=== PATIENT | male | born 1960 | race African-American/Black ===

== ENCOUNTER 2016-06-20 08:49 | Inpatient (IN) | payer OTHER, MEDICAID ==
[~2016-06-20] VITALS: Ht 175.3 cm; Wt 90.7 kg
[~2016-06-20 08:49] MED LIST: AMLO5TAB2 PO; CLON0.1T PO; NOR5T PO
[2016-06-20] MEDS ORDERED: ALBUTEROL SULF 2.5 MG/0.5ML(0.5%) NEB SOLN NEB ONE ×2 (09:00→09:45)
[2016-06-20] MEDS ORDERED: IPRATROPIUM BROM 0.5 MG/2.5ML INH SOL NEB ONE ×2 (09:00→09:45)
[2016-06-20] MEDS ORDERED: methylPREDNISolone SOD SUCC 125 MG/2 ML VL IM ONE (09:30)
[2016-06-20] MEDS ORDERED: FUROSEMIDE 100 MG/10ML VIAL IV ONE (10:30)
[2016-06-20 11:18] LABS: Basophils # (auto) 0 uL; Basophils % (auto) 0.8 % (0.0-2.0); Eosinophils # (auto) 0 uL; Eosinophils % (auto) 0.8 % (0.0-7.0); Hematocrit 37.7 % (41.0-53.0); Hemoglobin 12.5 g/dL (13.5-17.5); Lymphocytes # (auto) 2.4 uL; Lymphocytes % (auto) 50.2 % (10.0-50.0); Mean Corpuscular Hemoglobin 29.6 pg (28.0-32.0); Mean Corpuscular Hgb Conc. 33.2 g/dL (32.0-36.0); Mean Corpuscular Volume 89.2 fL (80.0-100.0); Mean Platelet Volume 9.1 fL (7.4-10.4); Monocytes # (auto) 0.3 uL; Monocytes % (auto) 7.4 % (0.0-12.0); Neutrophils # (auto) 1.9 uL; Neutrophils % (auto) 40.8 % (37.0-80.0); Platelet Count (auto) 327 10^3/uL (140-450); Red Cell Distribution Width 13.4 % (11.6-16.0); White Blood Cell 4.7 10^3/uL (4.4-10.8)
[2016-06-20] MEDS ORDERED: cefTRIAXone 1GM/50ML D5W 50 ML IV ONE ×2 (11:30→23:00)
[2016-06-20 11:54] LABS: Urine RBC None Seen /hpf (0 - 3)
[2016-06-20 11:58] LABS: Albumin 3.2 g/dL (3.4-5.0); BUN/Creatinine Ratio 12.5; Bilirubin, Total 0.4 mg/dL (0.2-1.0); Calcium 8.1 mg/dL (8.5-10.1); Magnesium 2.3 mg/dL (1.6-2.6); Potassium 4.1 mmol/L (3.5-5.1); Total Protein 6.9 g/dL (6.4-8.2)
[2016-06-20] MEDS ORDERED: cloNIDine HCL 0.1 MG TAB PO ONE (12:00)
[2016-06-20 12:49] LABS: Urine Bilirubin Negative (Negative); Urine Blood Negative /uL (Negative); Urine Color Yellow (Yellow); Urine Glucose Normal (Normal); Urine Ketone Negative (Negative); Urine Mucus FEW (None Seen); Urine Nitrite Negative (Negative); Urine Urobilinogen Normal (Negative); Urine pH 5.5 (5.0-8.0)
[2016-06-20] MEDS ORDERED: POTASSIUM CHL 10 Meq TABLET PO ONE (13:45)
[2016-06-20] MEDS ORDERED: FUROSEMIDE 20 MG/2 ML VIAL IV ONE (13:45)
[2016-06-20] MEDS ORDERED: VANCOMYCIN PER PHARMACY 0 MG IV SCH (13:45)
[2016-06-20] MEDS: SODIUM CHLOR 0.9% PF (SALINE LOCK) 10ML VIAL IV SCH ×2 (13:59→22:25)
[2016-06-20] MEDS ORDERED: MORPHINE SULF INJ 2 MG/ML SYRINGE 1ML IV PRN (14:00)
[2016-06-20] MEDS ORDERED: DOCUSATE SOD 100 MG CAP PO PRN (14:00)
[2016-06-20] MEDS ORDERED: NITROGLYCERIN 0.4 MG SL TAB SL PRN (14:00)
[2016-06-20] MEDS ORDERED: ACETAMINOPHEN 325 MG TAB PO PRN (14:00)
[2016-06-20] MEDS ORDERED: ONDANSETRON HCL 4 MG/2 ML VIAL IV PRN (14:00)
[2016-06-20] MEDS ORDERED: ASPirin-EC 81 mg tab PO ONE (14:00)
[2016-06-20] MEDS ORDERED: TEMAZEPAM 15 MG CAP PO PRN (14:00)
[2016-06-20] MEDS ORDERED: HYDROcodone-ACET 5/325MG TAB PO PRN (14:00)
[2016-06-20] MEDS ORDERED: amLODIPine BESYLATE 5 MG TAB PO ONE (14:00)
[2016-06-20] MEDS ORDERED: MULTIPLE VITAMIN TAB PO ONE (14:00)
[2016-06-20] MEDS ORDERED: ENOXAPARIN SOD 80 MG/0.8ML SYRINGE SC ONE (14:15)
[2016-06-20 14:25] LABS: INR 1.07 (0.9-1.15)
[2016-06-20] MEDS: VANCOMYCIN 1GM/250ML D5W 250 ML IV SCH (14:43)
[2016-06-20 14:58] LABS: Temperature: 22.8 C (20.0-25.0)
[2016-06-20] MEDS: ALBUTEROL SULF 2.5 MG/0.5ML(0.5%) NEB SOLN NEB SCH (18:20)
[2016-06-20] MEDS: IPRATROPIUM BROM 0.5 MG/2.5ML INH SOL NEB SCH (18:20)
[2016-06-20] MEDS: BOOST PLUS 8 ounce PO SCH (19:23)
[2016-06-20] MEDS ORDERED: ENOXAPARIN SOD 40 MG/0.4 ML SYRINGE SC SCH (22:00)
[2016-06-20] MEDS: CARVEDILOL 3.125 MG TAB PO SCH (22:26)
[2016-06-20] MEDS: ATORVASTATIN 20 MG TAB PO SCH (22:26)
[2016-06-20] MEDS: FAMOTIDINE 20 MG TAB PO SCH (22:26)
[2016-06-21] MEDS: VANCOMYCIN 1GM/250ML D5W 250 ML IV SCH ×2 (03:17→15:11)
[2016-06-21 03:53] VITALS: BP 137/95
[2016-06-21 04:20] LABS: Basophils # (auto) 0 uL; Basophils % (auto) 0.3 % (0.0-2.0); Eosinophils # (auto) 0 uL; Hematocrit 36.9 % (41.0-53.0); Hemoglobin 12.3 g/dL (13.5-17.5); Lymphocytes # (auto) 1.5 uL; Lymphocytes % (auto) 18.6 % (10.0-50.0); Mean Corpuscular Hemoglobin 29.7 pg (28.0-32.0); Mean Corpuscular Hgb Conc. 33.2 g/dL (32.0-36.0); Mean Corpuscular Volume 89.3 fL (80.0-100.0); Mean Platelet Volume 9.1 fL (7.4-10.4); Monocytes # (auto) 0.6 uL; Monocytes % (auto) 7.1 % (0.0-12.0); Neutrophils # (auto) 5.8 uL; Platelet Count (auto) 331 10^3/uL (140-450); Red Cell Distribution Width 14.1 % (11.6-16.0); White Blood Cell 7.8 10^3/uL (4.4-10.8)
[2016-06-21 04:38] LABS: Albumin 2.9 g/dL (3.4-5.0); BUN/Creatinine Ratio 17.5; Bilirubin, Total 0.4 mg/dL (0.2-1.0); Calcium 8.2 mg/dL (8.5-10.1); Potassium 4.4 mmol/L (3.5-5.1); Total Protein 6.1 g/dL (6.4-8.2)
[2016-06-21] MEDS: ENOXAPARIN SOD 80 MG/0.8ML SYRINGE SC SCH ×2 (05:38→17:17)
[2016-06-21] MEDS: ALBUTEROL SULF 2.5 MG/0.5ML(0.5%) NEB SOLN NEB SCH ×5 (06:00→23:57)
[2016-06-21] MEDS: IPRATROPIUM BROM 0.5 MG/2.5ML INH SOL NEB SCH ×5 (06:00→23:57)
[2016-06-21] MEDS: SODIUM CHLOR 0.9% PF (SALINE LOCK) 10ML VIAL IV SCH ×3 (06:00→22:08)
[2016-06-21] MEDS: BOOST PLUS 8 ounce PO SCH ×3 (08:36→18:05)
[2016-06-21] MEDS: cefTRIAXone 1GM/50ML D5W 50 ML IV SCH (09:30)
[2016-06-21] MEDS: FUROSEMIDE 40 MG/4 ML VIAL IV SCH (09:44)
[2016-06-21] MEDS: amLODIPine BESYLATE 5 MG TAB PO SCH (09:45)
[2016-06-21] MEDS: CARVEDILOL 3.125 MG TAB PO SCH ×2 (09:45→22:21)
[2016-06-21] MEDS: ASPirin-EC 81 mg tab PO SCH (09:45)
[2016-06-21] MEDS: POTASSIUM CHL 10 Meq TABLET PO SCH (09:45)
[2016-06-21] MEDS: FAMOTIDINE 20 MG TAB PO SCH ×2 (09:45→22:22)
[2016-06-21] MEDS: MULTIPLE VITAMIN TAB PO SCH (09:45)
[2016-06-21] MEDS ORDERED: ENALAPRIL MALEATE 2.5 MG TAB PO SCH (10:00)
[2016-06-21] MEDS: PROMETHAZINE W/CODEINE 5 ML ORAL SYRUP PO PRN ×2 (15:16→18:51)
[2016-06-21] MEDS: ATORVASTATIN 20 MG TAB PO SCH (22:22)
[2016-06-22] MEDS: PROMETHAZINE W/CODEINE 5 ML ORAL SYRUP PO PRN ×2 (01:39→06:45)
[2016-06-22 02:33] LABS: Basophils # (auto) 0.1 uL; Eosinophils # (auto) 0.1 uL; Hematocrit 39.4 % (41.0-53.0); Hemoglobin 12.9 g/dL (13.5-17.5); Lymphocytes # (auto) 3.2 uL; Lymphocytes % (auto) 49.9 % (10.0-50.0); Mean Corpuscular Hemoglobin 29.3 pg (28.0-32.0); Mean Corpuscular Hgb Conc. 32.8 g/dL (32.0-36.0); Mean Corpuscular Volume 89.5 fL (80.0-100.0); Mean Platelet Volume 9.2 fL (7.4-10.4); Monocytes # (auto) 0.3 uL; Monocytes % (auto) 4.2 % (0.0-12.0); Neutrophils # (auto) 2.8 uL; Neutrophils % (auto) 43.9 % (37.0-80.0); Platelet Count (auto) 342 10^3/uL (140-450); Red Cell Distribution Width 14.1 % (11.6-16.0); White Blood Cell 6.4 10^3/uL (4.4-10.8)
[2016-06-22 03:05] LABS: BUN/Creatinine Ratio 20.7; Calcium 8.2 mg/dL (8.5-10.1); Potassium 4.7 mmol/L (3.5-5.1)
[2016-06-22] MEDS: VANCOMYCIN 1GM/250ML D5W 250 ML IV SCH ×2 (03:16→15:09)
[2016-06-22] MEDS ORDERED: ALBUTEROL SULF 2.5 MG/0.5ML(0.5%) NEB SOLN NEB PRN (04:45)
[2016-06-22] MEDS: SODIUM CHLOR 0.9% PF (SALINE LOCK) 10ML VIAL IV SCH ×3 (05:02→22:00)
[2016-06-22] MEDS: ENOXAPARIN SOD 80 MG/0.8ML SYRINGE SC SCH ×2 (05:06→17:09)
[2016-06-22] MEDS: IPRATROPIUM BROM 0.5 MG/2.5ML INH SOL NEB SCH ×4 (06:00→23:40)
[2016-06-22] MEDS: ALBUTEROL SULF 2.5 MG/0.5ML(0.5%) NEB SOLN NEB SCH ×4 (06:00→23:41)
[2016-06-22] MEDS: BOOST PLUS 8 ounce PO SCH ×6 (08:19→22:00)
[2016-06-22] MEDS: cefTRIAXone 1GM/50ML D5W 50 ML IV SCH (09:30)
[2016-06-22] MEDS: POTASSIUM CHL 10 Meq TABLET PO SCH (10:21)
[2016-06-22] MEDS: FUROSEMIDE 40 MG/4 ML VIAL IV SCH (10:21)
[2016-06-22] MEDS: CARVEDILOL 3.125 MG TAB PO SCH ×2 (10:21→22:00)
[2016-06-22] MEDS: ASPirin-EC 81 mg tab PO SCH (10:21)
[2016-06-22] MEDS: FAMOTIDINE 20 MG TAB PO SCH ×2 (10:21→21:22)
[2016-06-22] MEDS: MULTIPLE VITAMIN TAB PO SCH (10:21)
[2016-06-22] MEDS: amLODIPine BESYLATE 5 MG TAB PO SCH (10:22)
[2016-06-22] MEDS: NITROGLYCERIN 50MG/250ML 250 ML IV SCH (14:19)
[2016-06-22] MEDS: hydrALAZINE HCL 25 MG TAB PO SCH ×2 (14:19→21:26)
[2016-06-22 20:30] VITALS: BP 144/112
[2016-06-22] MEDS: ATORVASTATIN 20 MG TAB PO SCH (21:21)
[2016-06-22] MEDS: MORPHINE SULF INJ 2 MG/ML SYRINGE 1ML IV PRN (21:23)
[2016-06-22 21:39] VITALS: BP 125/96
[2016-06-23] VITALS (46 sets, daily range): BP systolic 105–163; BP diastolic 24–117
[2016-06-23] MEDS: VANCOMYCIN 1GM/250ML D5W 250 ML IV SCH (03:34)
[2016-06-23] MEDS: MORPHINE SULF INJ 2 MG/ML SYRINGE 1ML IV PRN (03:38)
[2016-06-23] MEDS: BOOST PLUS 8 ounce PO SCH ×7 (06:00→22:00)
[2016-06-23] MEDS: hydrALAZINE HCL 25 MG TAB PO SCH ×3 (06:08→21:49)
[2016-06-23] MEDS: ENOXAPARIN SOD 80 MG/0.8ML SYRINGE SC SCH ×2 (06:08→17:23)
[2016-06-23] MEDS: SODIUM CHLOR 0.9% PF (SALINE LOCK) 10ML VIAL IV SCH ×3 (06:11→21:49)
[2016-06-23 06:30] LABS: Basophils # (auto) 0 uL; Basophils % (auto) 0.3 % (0.0-2.0); Eosinophils # (auto) 0.1 uL; Eosinophils % (auto) 2.4 % (0.0-7.0); Hematocrit 38.9 % (41.0-53.0); Hemoglobin 12.7 g/dL (13.5-17.5); Lymphocytes # (auto) 1.9 uL; Lymphocytes % (auto) 41.2 % (10.0-50.0); Mean Corpuscular Hemoglobin 29.4 pg (28.0-32.0); Mean Corpuscular Hgb Conc. 32.5 g/dL (32.0-36.0); Mean Corpuscular Volume 90.4 fL (80.0-100.0); Mean Platelet Volume 9.7 fL (7.4-10.4); Monocytes # (auto) 0.4 uL; Monocytes % (auto) 9.8 % (0.0-12.0); Neutrophils # (auto) 2.1 uL; Neutrophils % (auto) 46.3 % (37.0-80.0); Platelet Count (auto) 345 10^3/uL (140-450); Red Cell Distribution Width 14.2 % (11.6-16.0); SUSPECT VIEW TRANSMISSION; White Blood Cell 4.5 10^3/uL (4.4-10.8)
[2016-06-23] MEDS: IPRATROPIUM BROM 0.5 MG/2.5ML INH SOL NEB SCH ×3 (06:30→18:48)
[2016-06-23] MEDS: ALBUTEROL SULF 2.5 MG/0.5ML(0.5%) NEB SOLN NEB SCH ×3 (06:30→18:47)
[2016-06-23 07:12] LABS: Albumin 2.8 g/dL (3.4-5.0); BUN/Creatinine Ratio 21.3; Bilirubin, Total 0.6 mg/dL (0.2-1.0); Calcium 8.3 mg/dL (8.5-10.1); Potassium 4.4 mmol/L (3.5-5.1); Total Protein 6.5 g/dL (6.4-8.2)
[2016-06-23] MEDS: cefTRIAXone 1GM/50ML D5W 50 ML IV SCH (09:34)
[2016-06-23] MEDS: FUROSEMIDE 40 MG/4 ML VIAL IV SCH (09:35)
[2016-06-23] MEDS: CARVEDILOL 3.125 MG TAB PO SCH ×2 (09:36→21:50)
[2016-06-23] MEDS: FAMOTIDINE 20 MG TAB PO SCH ×2 (09:36→21:49)
[2016-06-23] MEDS: POTASSIUM CHL 10 Meq TABLET PO SCH (09:36)
[2016-06-23] MEDS: amLODIPine BESYLATE 5 MG TAB PO SCH (09:36)
[2016-06-23] MEDS: MULTIPLE VITAMIN TAB PO SCH (09:36)
[2016-06-23] MEDS: ASPirin-EC 81 mg tab PO SCH (09:36)
[2016-06-23] MEDS: NITROGLYCERIN 50MG/250ML 250 ML IV SCH (13:00)
[2016-06-23] MEDS: ATORVASTATIN 20 MG TAB PO SCH (21:53)
[2016-06-23] MEDS: PROMETHAZINE W/CODEINE 5 ML ORAL SYRUP PO PRN (21:56)
[2016-06-24] MEDS: IPRATROPIUM BROM 0.5 MG/2.5ML INH SOL NEB SCH ×3 (00:40→12:57)
[2016-06-24] MEDS: ALBUTEROL SULF 2.5 MG/0.5ML(0.5%) NEB SOLN NEB SCH ×3 (00:40→12:57)
[2016-06-24 04:43] VITALS: BP 142/100
[2016-06-24] MEDS: ENOXAPARIN SOD 80 MG/0.8ML SYRINGE SC SCH (05:21)
[2016-06-24] MEDS: SODIUM CHLOR 0.9% PF (SALINE LOCK) 10ML VIAL IV SCH ×2 (05:22→14:24)
[2016-06-24] MEDS: hydrALAZINE HCL 25 MG TAB PO SCH ×2 (05:30→14:00)
[2016-06-24 05:49] LABS: Basophils # (auto) 0 uL; Basophils % (auto) 0.6 % (0.0-2.0); Eosinophils # (auto) 0.1 uL; Eosinophils % (auto) 2.2 % (0.0-7.0); Hematocrit 43.2 % (41.0-53.0); Hemoglobin 14.6 g/dL (13.5-17.5); Lymphocytes # (auto) 2.6 uL; Lymphocytes % (auto) 44.9 % (10.0-50.0); Mean Corpuscular Hemoglobin 29.8 pg (28.0-32.0); Mean Corpuscular Hgb Conc. 33.8 g/dL (32.0-36.0); Mean Corpuscular Volume 88.4 fL (80.0-100.0); Mean Platelet Volume 9.4 fL (7.4-10.4); Monocytes # (auto) 0.6 uL; Monocytes % (auto) 10.1 % (0.0-12.0); Neutrophils # (auto) 2.5 uL; Neutrophils % (auto) 42.2 % (37.0-80.0); Platelet Count (auto) 383 10^3/uL (140-450); White Blood Cell 5.9 10^3/uL (4.4-10.8)
[2016-06-24] MEDS: BOOST PLUS 8 ounce PO SCH ×2 (06:00→12:00)
[2016-06-24 06:30] LABS: BUN/Creatinine Ratio 19.5; Calcium 8.7 mg/dL (8.5-10.1); Potassium 4.4 mmol/L (3.5-5.1)
[2016-06-24 09:00] VITALS: BP 127/94
[2016-06-24] MEDS: cefTRIAXone 1GM/50ML D5W 50 ML IV SCH (09:05)
[2016-06-24] MEDS: MULTIPLE VITAMIN TAB PO SCH (09:53)
[2016-06-24] MEDS: FUROSEMIDE 40 MG/4 ML VIAL IV SCH (09:53)
[2016-06-24] MEDS: CARVEDILOL 3.125 MG TAB PO SCH (09:54)
[2016-06-24] MEDS: ASPirin-EC 81 mg tab PO SCH (09:54)
[2016-06-24] MEDS: POTASSIUM CHL 10 Meq TABLET PO SCH (09:55)
[2016-06-24] MEDS: FAMOTIDINE 20 MG TAB PO SCH (09:56)
[2016-06-24] MEDS ORDERED: amLODIPine BESYLATE 5 MG TAB PO SCH (10:00)
[2016-06-24] MEDS ORDERED: NIFEdipine ER 30 MG TAB PO ONE (10:45)
[2016-06-24 12:25] VITALS: BP 128/92
[2016-06-24 13:00] VITALS: BP 128/92
== END 2016-06-24 15:30 | disposition home or self-care (01) | DRG 291 ==
LOC: ER 08:52 → TELE 08:53 → DOU IN ICU 06-22 20:28 → TELE-EAST 06-23 18:18
PROVIDERS: ADMIT Internal Medicine; ATTEND Family Medicine
DX: I50.43 Acute on chronic combined systolic (congestive) and diastolic (congestive) heart failure (principal); J18.9 Pneumonia, unspecified organism; E43 Unspecified severe protein-calorie malnutrition; J96.90 Respiratory failure, unspecified, unspecified whether with hypoxia or hypercapnia; I13.0 Hypertensive heart and chronic kidney disease with heart failure and stage 1 through stage 4 chronic kidney disease, or unspecified chronic kidney disease; J44.0 Chronic obstructive pulmonary disease with (acute) lower respiratory infection; J45.901 Unspecified asthma with (acute) exacerbation; I42.9 Cardiomyopathy, unspecified; Z88.8 Allergy status to other drugs, medicaments and biological substances; N18.3 Chronic kidney disease, stage 3 (moderate); M10.9 Gout, unspecified; F17.210 Nicotine dependence, cigarettes, uncomplicated; D63.8 Anemia in other chronic diseases classified elsewhere; E83.51 Hypocalcemia; Z83.3 Family history of diabetes mellitus; Z82.49 Family history of ischemic heart disease and other diseases of the circulatory system; Z80.9 Family history of malignant neoplasm, unspecified; Z68.29 Body mass index [BMI] 29.0-29.9, adult
CPT/HCPCS: 36415; 71010; 71020; 78582; 80048; 80053; 80202; 81001; 83605; 83735; 83880; 84484; 85025; 85379; 85610; 85730; 87040; 87081; 87400; 93005; 93306; 93970; 94640; 96365; 96372; 96375; J0696

== ENCOUNTER → 2017-01-05 | Outpatient (CLI) | payer OTHER, MEDICAID ==
[~2017-01-05] MED LIST changes: +HYDR-4663 PO; -NOR5T PO
[2017-01-05 11:01] LABS: Basophils # (auto) 0.1 uL; Basophils % (auto) 1.1 % (0.0-2.0); Eosinophils # (auto) 0.1 uL; Eosinophils % (auto) 0.9 % (0.0-7.0); Hematocrit 43.3 % (41.0-53.0); Hemoglobin 14.5 g/dL (13.5-17.5); Lymphocytes # (auto) 2.1 uL; Lymphocytes % (auto) 35.9 % (10.0-50.0); Mean Corpuscular Hemoglobin 30.9 pg (28.0-32.0); Mean Corpuscular Hgb Conc. 33.5 g/dL (32.0-36.0); Mean Corpuscular Volume 92.2 fL (80.0-100.0); Mean Platelet Volume 8.1 fL (6.9-10.8); Monocytes # (auto) 0.4 uL; Monocytes % (auto) 6.3 % (0.0-12.0); Neutrophils # (auto) 3.2 uL; Neutrophils % (auto) 55.8 % (37.0-80.0); Nucleated Red Blood Cells % 0.2 %; Platelet Count (auto) 270 10^3/uL (140-450); Red Cell Distribution Width 13.6 % (11.8-14.3); White Blood Cell 5.8 10^3/uL (4.4-10.8)
[2017-01-05 11:25] LABS: Calcium 8.6 mg/dL (8.5-10.1); Potassium 3.7 mmol/L (3.5-5.1)
== END | disposition home or self-care (01) ==
LOC: LAB 10:38
PROVIDERS: ATTEND Internal Medicine
DX: I10 Essential (primary) hypertension (principal); E78.2 Mixed hyperlipidemia; E55.9 Vitamin D deficiency, unspecified; J44.9 Chronic obstructive pulmonary disease, unspecified
CPT/HCPCS: 36415; 80048; 80061; 82306; 85025

== ENCOUNTER 2017-07-07 17:35 | Emergency (ER) | payer OTHER, MEDICAID ==
[~2017-07-07] VITALS: Ht 177.8 cm; Wt 93.0 kg
[~2017-07-07 17:35] MED LIST changes: -HYDR-4663 PO; +HYDR-4683 PO
[2017-07-07] MEDS ORDERED: ASPirin 81 mg TAB PO ONE (18:00)
[2017-07-07] MEDS ORDERED: cloNIDine HCL 0.1 MG TAB PO ONE (18:00)
[2017-07-07 18:42] LABS: Basophils # (auto) 0 uL; Eosinophils # (auto) 0.1 uL; Lymphocytes # (auto) 2.4 uL; Mean Corpuscular Volume 93.5 fL (80.0-100.0)
[2017-07-07 18:53] LABS: Basophils % (auto) 0.6 % (0.0-2.0); Eosinophils % (auto) 1.5 % (0.0-7.0); Hematocrit 48.2 % (41.0-53.0); Hemoglobin 16.1 g/dL (13.5-17.5); Lymphocytes % (auto) 42.8 % (10.0-50.0); Mean Corpuscular Hemoglobin 31.2 pg (28.0-32.0); Mean Corpuscular Hgb Conc. 33.3 g/dL (32.0-36.0); Monocytes # (auto) 0.4 uL; Monocytes % (auto) 7.8 % (0.0-12.0); Neutrophils # (auto) 2.6 uL; Neutrophils % (auto) 47.3 % (37.0-80.0); Nucleated Red Blood Cells % 0.2 %; Platelet Count (auto) 239 10^3/uL (140-450); Red Blood Cells 5.16 10^6/uL (4.5-5.90); Red Cell Distribution Width 14.5 % (11.8-14.3); White Blood Cell 5.5 10^3/uL (4.4-10.8)
[2017-07-07 18:59] VITALS: BP 133/106
[2017-07-07 18:59] LABS: Alanine Aminotransferase 53 U/L (16-61); Albumin 3.7 g/dL (3.4-5.0); Anion Gap 7 (5-15); Aspartate Aminotransferase 60 U/L (15-37); BUN/Creatinine Ratio 14.2; Blood Urea Nitrogen 22 mg/dL (7-18); Calcium 8.5 mg/dL (8.5-10.1); Carbon Dioxide 26 mmol/L (21-32); Chloride 108 mmol/L (98-107); GFR African American 60 mL/min; GFR Non-African American 50 mL/min; Glucose 91 mg/dL (74-106); Potassium 3.9 mmol/L (3.5-5.1); Sodium 141 mmol/L (136-145)
[2017-07-07 19:04] LABS: Alkaline Phosphatase 109 U/L (45-117); Bilirubin, Total 0.4 mg/dL (0.2-1.0); Total Protein 8.2 g/dL (6.4-8.2)
== END 2017-07-07 20:33 | disposition home or self-care (01) ==
LOC: ER 17:35
DX: I16.0 Hypertensive urgency (principal); R07.89 Other chest pain; I11.0 Hypertensive heart disease with heart failure; I50.9 Heart failure, unspecified; M19.90 Unspecified osteoarthritis, unspecified site; M10.9 Gout, unspecified; F17.210 Nicotine dependence, cigarettes, uncomplicated; F15.10 Other stimulant abuse, uncomplicated; Z88.8 Allergy status to other drugs, medicaments and biological substances
CPT/HCPCS: 36415; 71046; 80053; 83735; 84484; 85025; 93005; 94761

== ENCOUNTER 2017-09-22 22:46 | Emergency (ER) | payer OTHER, MEDICAID ==
[2017-09-22 22:53] VITALS: BP 190/131
[2017-09-22] MEDS ORDERED: cloNIDine HCL 0.1 MG TAB ONE (23:09)
[2017-09-22] MEDS ORDERED: cloNIDine HCL 0.1 MG TAB PO ONE (23:15)
[2017-09-22 23:35] LABS: Basophils # (auto) 0 uL; Basophils % (auto) 0.8 % (0.0-2.0); Eosinophils # (auto) 0.2 uL; Eosinophils % (auto) 3.3 % (0.0-7.0); Hematocrit 41.3 % (41.0-53.0); Hemoglobin 13.7 g/dL (13.5-17.5); Lymphocytes # (auto) 2.4 uL; Lymphocytes % (auto) 45.2 % (10.0-50.0); Mean Corpuscular Hemoglobin 30.9 pg (28.0-32.0); Mean Corpuscular Hgb Conc. 33.3 g/dL (32.0-36.0); Mean Corpuscular Volume 92.8 fL (80.0-100.0); Monocytes # (auto) 0.5 uL; Monocytes % (auto) 8.6 % (0.0-12.0); Neutrophils # (auto) 2.3 uL; Neutrophils % (auto) 42.1 % (37.0-80.0); Nucleated Red Blood Cells % 0.1 %; Platelet Count (auto) 268 10^3/uL (140-450); Red Blood Cells 4.45 10^6/uL (4.5-5.90); White Blood Cell 5.4 10^3/uL (4.4-10.8)
[2017-09-22 23:53] LABS: Alanine Aminotransferase 44 U/L (16-61); Albumin 3.6 g/dL (3.4-5.0); Anion Gap 11 (5-15); Aspartate Aminotransferase 56 U/L (15-37); BUN/Creatinine Ratio 11.7; Blood Urea Nitrogen 16 mg/dL (7-18); Calcium 8.5 mg/dL (8.5-10.1); Carbon Dioxide 19 mmol/L (21-32); Chloride 110 mmol/L (98-107); GFR African American 69 mL/min; GFR Non-African American 57 mL/min; Glucose 71 mg/dL (74-106); Magnesium 2.1 mg/dL (1.6-2.6); Potassium 4.1 mmol/L (3.5-5.1); Sodium 140 mmol/L (136-145)
[2017-09-22 23:58] LABS: Alkaline Phosphatase 124 U/L (45-117); Bilirubin, Total 0.6 mg/dL (0.2-1.0); Total Protein 7.7 g/dL (6.4-8.2)
== END 2017-09-23 02:10 | disposition left against medical advice (07) ==
LOC: EDBD 22:46 → ER 22:48
DX: R07.9 Chest pain, unspecified (principal); Z53.21 Procedure and treatment not carried out due to patient leaving prior to being seen by health care provider
CPT/HCPCS: 36415; 80053; 83735; 83880; 84443; 84484; 85025; 93005

== ENCOUNTER 2017-10-10 20:54 | Inpatient (IN) | payer OTHER, MEDICAID ==
[~2017-10-10] VITALS: Ht 175.3 cm; Wt 86.0 kg
[2017-10-10] VITALS (10 sets, daily range): BP systolic 120–148; BP diastolic 63–80
[2017-10-10] MEDS ORDERED: NITROGLYCERIN 0.4 MG SL TAB SL PRN (21:15)
[2017-10-10] MEDS ORDERED: MORPHINE SULF INJ 2 MG/ML SYRINGE 1ML IV PRN (21:15)
[2017-10-10] MEDS ORDERED: DEXTROSE (50%) 50ML SYRG IV PRN (22:15)
[2017-10-10] MEDS ORDERED: IPRATROPIUM BROM 0.5 MG/2.5ML INH SOL NEB PRN (22:15)
[2017-10-10] MEDS ORDERED: hydrALAZINE HCL 20 MG/ML VL IV PRN (22:15)
[2017-10-10] MEDS ORDERED: ONDANSETRON HCL 4 MG/2 ML VIAL IV PRN (22:15)
[2017-10-10] MEDS ORDERED: PROPOFOL 100 ML IV ONE (23:31)
[2017-10-11] VITALS (101 sets, daily range): BP systolic 106–144; BP diastolic 47–88
[2017-10-11] MEDS: ATROPINE SULF 1 MG/10ml SYR ONE ×2 (03:45→17:44)
[2017-10-11 04:21] LABS: Albumin 2.3 g/dL (3.4-5.0); BUN/Creatinine Ratio 22.4; Bilirubin, Total 0.2 mg/dL (0.2-1.0); Calcium 8.8 mg/dL (8.5-10.1); Magnesium 2.6 mg/dL (1.6-2.6); Phosphorus 3.5 mg/dL (2.5-4.90); Potassium 3.8 mmol/L (3.5-5.1); Total Protein 7.2 g/dL (6.4-8.2)
[2017-10-11 04:56] LABS: Basophils # (auto) 0.2 uL; Basophils % (auto) 3.1 % (0.0-2.0); Eosinophils # (auto) 0.2 uL; Eosinophils % (auto) 2.3 % (0.0-7.0); Hemoglobin 8.4 g/dL (13.5-17.5); Lymphocytes # (auto) 1.8 uL; Mean Corpuscular Hemoglobin 30.8 pg (28.0-32.0); Mean Corpuscular Hgb Conc. 32.2 g/dL (32.0-36.0); Mean Corpuscular Volume 95.5 fL (80.0-100.0); Monocytes # (auto) 0.7 uL; Monocytes % (auto) 9.1 % (0.0-12.0); Neutrophils % (auto) 62.5 % (37.0-80.0); Red Blood Cells 2.72 10^6/uL (4.5-5.90); Red Cell Distribution Width 13.9 % (11.8-14.3)
[2017-10-11 04:57] LABS: Platelet Count (auto) 512 10^3/uL (140-450)
[2017-10-11] MEDS ORDERED: AMPICILLIN SOD 1 GM VL ONE (05:34)
[2017-10-11] MEDS: InsuLIN REG 1unit/0.01ml Soln (100units/ml) SC SCH ×3 (06:00→13:10)
[2017-10-11] MEDS: HEPARIN SODIUM (PORCINE) 5000 UNITS/ML 1ML VIAL SC SCH ×3 (06:01→21:59)
[2017-10-11] MEDS: AMPICILLIN SOD 2GM INJ 2 GM in SODIUM CHL 0.9% 100 ML IV SCH ×5 (06:01→17:32)
[2017-10-11] MEDS: ACCU-CHEK COMFORT CURVE STRIP VI SCH ×3 (06:02→12:00)
[2017-10-11] MEDS ORDERED: ATROPINE SULF 1 MG/10ml SYR ONE (09:16)
[2017-10-11] MEDS ORDERED: ATROPINE SULFATE 0.4 MG/1 ML VIAL ONE ×2 (09:17→14:18)
[2017-10-11] MEDS: PROPOFOL 100 ML IV SCH ×3 (09:28→21:58)
[2017-10-11] MEDS ORDERED: METOPROLOL TARTRATE 50 MG TAB PO SCH (10:00)
[2017-10-11] MEDS: THIAMINE HCL 100 MG TAB PO SCH (10:54)
[2017-10-11] MEDS: MULTIPLE VITAMIN TAB PO SCH (10:54)
[2017-10-11] MEDS: amLODIPine BESYLATE 5 MG TAB PO SCH (10:54)
[2017-10-11] MEDS: DOCUSATE ORAL LIQUID 100 MG/10 ML UD GT SCH (10:55)
[2017-10-11] MEDS: FAMOTIDINE 20 MG TAB PO SCH ×2 (10:55→21:58)
[2017-10-11] MEDS ORDERED: Vital AF 1.2 Cal 1 liter bottle GT SCH (13:45)
[2017-10-11] MEDS: IPRATROPIUM BROM 0.5 MG/2.5ML INH SOL NEB SCH (15:43)
[2017-10-11] MEDS: fentaNYL Drip 2500mCg/250mlNS 250 ML IV SCH (22:30)
[2017-10-12] VITALS (104 sets, daily range): BP systolic 102–136; BP diastolic 53–93
[2017-10-12] MEDS: ACETAMINOPHEN 650 mg PER 20 mL UD GT PRN (00:30)
[2017-10-12 03:37] LABS: Eosinophils # (auto) 0.2 uL; White Blood Cell 7.7 10^3/uL (4.4-10.8)
[2017-10-12 03:39] LABS: Basophils # (auto) 0.2 uL; Basophils % (auto) 2.2 % (0.0-2.0); Eosinophils % (auto) 3.2 % (0.0-7.0); Hematocrit 25.2 % (41.0-53.0); Hemoglobin 8.2 g/dL (13.5-17.5); Lymphocytes % (auto) 26.7 % (10.0-50.0); Mean Corpuscular Hemoglobin 31.1 pg (28.0-32.0); Mean Corpuscular Hgb Conc. 32.6 g/dL (32.0-36.0); Mean Corpuscular Volume 95.5 fL (80.0-100.0); Monocytes # (auto) 0.7 uL; Monocytes % (auto) 9.2 % (0.0-12.0); Neutrophils # (auto) 4.5 uL; Neutrophils % (auto) 58.7 % (37.0-80.0); Platelet Count (auto) 472 10^3/uL (140-450); Red Blood Cells 2.64 10^6/uL (4.5-5.90); Red Cell Distribution Width 13.6 % (11.8-14.3)
[2017-10-12 03:53] LABS: Albumin 2.3 g/dL (3.4-5.0); Calcium 8.7 mg/dL (8.5-10.1); Magnesium 2.2 mg/dL (1.6-2.6)
[2017-10-12 03:59] LABS: Bilirubin, Total 0.2 mg/dL (0.2-1.0)
[2017-10-12 04:18] LABS: BUN/Creatinine Ratio 24.2
[2017-10-12] MEDS: AMPICILLIN SOD 2GM INJ 2 GM in SODIUM CHL 0.9% 100 ML IV SCH ×5 (05:56→17:43)
[2017-10-12] MEDS: HEPARIN SODIUM (PORCINE) 5000 UNITS/ML 1ML VIAL SC SCH (05:56)
[2017-10-12] MEDS: IPRATROPIUM BROM 0.5 MG/2.5ML INH SOL NEB SCH ×3 (06:41→22:14)
[2017-10-12] MEDS ORDERED: ATROPINE SULF 1 MG/10ml SYR ONE (08:54)
[2017-10-12] MEDS: THIAMINE HCL 100 MG TAB PO SCH (11:00)
[2017-10-12] MEDS: MULTIPLE VITAMIN TAB PO SCH (11:00)
[2017-10-12] MEDS: amLODIPine BESYLATE 5 MG TAB PO SCH (11:01)
[2017-10-12] MEDS: DOCUSATE ORAL LIQUID 100 MG/10 ML UD GT SCH (11:01)
[2017-10-12] MEDS: FAMOTIDINE 20 MG TAB PO SCH ×2 (11:01→22:00)
[2017-10-12] MEDS: PROPOFOL 100 ML IV SCH (15:36)
[2017-10-12] MEDS: fentaNYL Drip 2500mCg/250mlNS 250 ML IV SCH (22:17)
[2017-10-13] VITALS (96 sets, daily range): BP systolic 104–148; BP diastolic 52–95
[2017-10-13] MEDS: AMPICILLIN SOD 2GM INJ 2 GM in SODIUM CHL 0.9% 100 ML IV SCH ×4 (00:49→18:00)
[2017-10-13 03:42] LABS: Basophils # (auto) 0.1 uL; Eosinophils # (auto) 0.3 uL; Lymphocytes # (auto) 1.6 uL; Monocytes # (auto) 0.7 uL; Neutrophils % (auto) 66.9 % (37.0-80.0); Nucleated Red Blood Cells % 0.1 %
[2017-10-13 03:43] LABS: Basophils % (auto) 0.8 % (0.0-2.0); Eosinophils % (auto) 3.8 % (0.0-7.0); Hemoglobin 8.2 g/dL (13.5-17.5); Lymphocytes % (auto) 19.6 % (10.0-50.0); Mean Corpuscular Hgb Conc. 32.6 g/dL (32.0-36.0); Monocytes % (auto) 8.9 % (0.0-12.0); Neutrophils # (auto) 5.5 uL; Platelet Count (auto) 483 10^3/uL (140-450); Red Blood Cells 2.64 10^6/uL (4.5-5.90); Red Cell Distribution Width 13.5 % (11.8-14.3); White Blood Cell 8.2 10^3/uL (4.4-10.8)
[2017-10-13 04:18] LABS: BUN/Creatinine Ratio 24.2; Calcium 8.6 mg/dL (8.5-10.1); Potassium 4.2 mmol/L (3.5-5.1)
[2017-10-13] MEDS: IPRATROPIUM BROM 0.5 MG/2.5ML INH SOL NEB SCH ×3 (06:35→22:17)
[2017-10-13] MEDS: THIAMINE HCL 100 MG TAB PO SCH (10:00)
[2017-10-13] MEDS: amLODIPine BESYLATE 5 MG TAB PO SCH (10:43)
[2017-10-13] MEDS: MULTIPLE VITAMIN TAB PO SCH (10:43)
[2017-10-13] MEDS: FAMOTIDINE 20 MG TAB PO SCH ×2 (10:43→22:29)
[2017-10-13] MEDS: DOCUSATE ORAL LIQUID 100 MG/10 ML UD GT SCH (10:43)
[2017-10-13] MEDS: PROPOFOL 100 ML IV SCH (17:59)
[2017-10-13] MEDS: fentaNYL Drip 2500mCg/250mlNS 250 ML IV SCH (22:17)
[2017-10-13] MEDS: ACETAMINOPHEN 650 mg PER 20 mL UD GT PRN (23:27)
[2017-10-14] VITALS (90 sets, daily range): BP systolic 103–211; BP diastolic 53–172
[2017-10-14] MEDS: AMPICILLIN SOD 2GM INJ 2 GM in SODIUM CHL 0.9% 100 ML IV SCH ×5 (01:23→23:58)
[2017-10-14] MEDS: IPRATROPIUM BROM 0.5 MG/2.5ML INH SOL NEB SCH ×3 (06:33→22:18)
[2017-10-14] MEDS: PROPOFOL 100 ML IV SCH (08:24)
[2017-10-14] MEDS: THIAMINE HCL 100 MG TAB PO SCH (10:00)
[2017-10-14] MEDS: DOCUSATE ORAL LIQUID 100 MG/10 ML UD GT SCH (10:32)
[2017-10-14] MEDS: MULTIPLE VITAMIN TAB PO SCH (10:32)
[2017-10-14] MEDS: FAMOTIDINE 20 MG TAB PO SCH ×2 (10:34→22:07)
[2017-10-14] MEDS: amLODIPine BESYLATE 5 MG TAB PO SCH (10:36)
[2017-10-14] MEDS ORDERED: FUROSEMIDE 40 MG/4 ML VIAL IV ONE (18:00)
[2017-10-14] MEDS: ACETAMINOPHEN 650 mg PER 20 mL UD GT PRN (18:35)
[2017-10-14] MEDS: fentaNYL Drip 2500mCg/250mlNS 250 ML IV SCH (22:17)
[2017-10-14] MEDS: LABETALOL HCL 5 MG/ML ML 20ML VIAL IV PRN (22:52)
[2017-10-15] VITALS (63 sets, daily range): BP systolic 131–181; BP diastolic 79–108
[2017-10-15] MEDS: LABETALOL HCL 5 MG/ML ML 20ML VIAL IV PRN (01:46)
[2017-10-15] MEDS: AMPICILLIN SOD 2GM INJ 2 GM in SODIUM CHL 0.9% 100 ML IV SCH ×3 (05:31→18:00)
[2017-10-15] MEDS: IPRATROPIUM BROM 0.5 MG/2.5ML INH SOL NEB SCH ×3 (06:01→22:29)
[2017-10-15] MEDS: DOCUSATE ORAL LIQUID 100 MG/10 ML UD GT SCH (10:00)
[2017-10-15] MEDS: THIAMINE HCL 100 MG TAB PO SCH (10:00)
[2017-10-15] MEDS: MULTIPLE VITAMIN TAB PO SCH (10:00)
[2017-10-15] MEDS: FAMOTIDINE 20 MG TAB PO SCH ×2 (10:00→22:09)
[2017-10-15] MEDS: amLODIPine BESYLATE 5 MG TAB PO SCH (10:00)
[2017-10-15 11:03] LABS: Hematocrit 29.5 % (41.0-53.0); Hemoglobin 9.7 g/dL (13.5-17.5)
[2017-10-15] MEDS ORDERED: FUROSEMIDE 40 MG/4 ML VIAL IV ONE (11:45)
[2017-10-15] MEDS: ATORVASTATIN 20 MG TAB PO SCH (22:08)
[2017-10-15] MEDS: cloNIDine HCL 0.1 MG TAB PO SCH (22:08)
[2017-10-16] VITALS (64 sets, daily range): BP systolic 118–154; BP diastolic 65–105
[2017-10-16] MEDS: AMPICILLIN SOD 2GM INJ 2 GM in SODIUM CHL 0.9% 100 ML IV SCH ×4 (00:27→18:00)
[2017-10-16 03:56] LABS: Hemoglobin 9.5 g/dL (13.5-17.5)
[2017-10-16 03:59] LABS: Hematocrit 28.5 % (41.0-53.0)
[2017-10-16 04:16] LABS: BUN/Creatinine Ratio 21.9; Calcium 9.2 mg/dL (8.5-10.1); Potassium 3.9 mmol/L (3.5-5.1)
[2017-10-16] MEDS: IPRATROPIUM BROM 0.5 MG/2.5ML INH SOL NEB SCH ×3 (06:29→22:31)
[2017-10-16] MEDS: THIAMINE HCL 100 MG TAB PO SCH (10:00)
[2017-10-16] MEDS: FAMOTIDINE 20 MG TAB PO SCH ×2 (10:00→23:26)
[2017-10-16] MEDS: FLORASTOR (S. BOULARDII) 250 MG CAP PO SCH (10:00)
[2017-10-16] MEDS: DOCUSATE ORAL LIQUID 100 MG/10 ML UD GT SCH (10:00)
[2017-10-16] MEDS: MULTIPLE VITAMIN TAB PO SCH (10:00)
[2017-10-16] MEDS: cloNIDine HCL 0.1 MG TAB PO SCH ×2 (10:00→23:26)
[2017-10-16] MEDS: amLODIPine BESYLATE 5 MG TAB PO SCH (10:00)
[2017-10-16] MEDS ORDERED: FUROSEMIDE 40 MG/4 ML VIAL IV ONE (16:30)
[2017-10-16] MEDS ORDERED: FUROSEMIDE 40 MG/4 ML VIAL ONE (17:08)
[2017-10-16] MEDS: ATORVASTATIN 20 MG TAB PO SCH (23:26)
[2017-10-17] VITALS (72 sets, daily range): BP systolic 96–164; BP diastolic 52–109
[2017-10-17] MEDS: AMPICILLIN SOD 2GM INJ 2 GM in SODIUM CHL 0.9% 100 ML IV SCH ×5 (01:13→23:39)
[2017-10-17] MEDS: IPRATROPIUM BROM 0.5 MG/2.5ML INH SOL NEB SCH ×4 (06:42→22:10)
[2017-10-17] MEDS: cloNIDine HCL 0.1 MG TAB PO SCH ×2 (10:00→21:44)
[2017-10-17] MEDS: THIAMINE HCL 100 MG TAB PO SCH (10:00)
[2017-10-17] MEDS: FLORASTOR (S. BOULARDII) 250 MG CAP PO SCH (10:00)
[2017-10-17] MEDS: amLODIPine BESYLATE 5 MG TAB PO SCH (10:00)
[2017-10-17] MEDS: DOCUSATE ORAL LIQUID 100 MG/10 ML UD GT SCH (10:00)
[2017-10-17] MEDS: MULTIPLE VITAMIN TAB PO SCH (10:00)
[2017-10-17] MEDS: FAMOTIDINE 20 MG TAB PO SCH ×2 (10:00→21:44)
[2017-10-17] MEDS: ALBUTEROL SULF 2.5 MG/0.5ML(0.5%) NEB SOLN NEB SCH ×3 (14:23→22:10)
[2017-10-17] MEDS: ATORVASTATIN 20 MG TAB PO SCH (21:44)
[2017-10-18] VITALS (60 sets, daily range): BP systolic 108–164; BP diastolic 57–132
[2017-10-18] MEDS: ALBUTEROL SULF 2.5 MG/0.5ML(0.5%) NEB SOLN NEB SCH ×5 (02:24→22:27)
[2017-10-18] MEDS: IPRATROPIUM BROM 0.5 MG/2.5ML INH SOL NEB SCH ×6 (02:24→22:54)
[2017-10-18 04:15] LABS: BUN/Creatinine Ratio 27.4; Calcium 9.1 mg/dL (8.5-10.1); Potassium 3.4 mmol/L (3.5-5.1)
[2017-10-18] MEDS: AMPICILLIN SOD 2GM INJ 2 GM in SODIUM CHL 0.9% 100 ML IV SCH ×3 (05:52→19:07)
[2017-10-18 08:54] LABS: Basophils # (auto) 0.1 uL; Hemoglobin 10.1 g/dL (13.5-17.5); Mean Corpuscular Hgb Conc. 32.6 g/dL (32.0-36.0); Neutrophils # (auto) 4.2 uL; White Blood Cell 6.4 10^3/uL (4.4-10.8)
[2017-10-18 08:55] LABS: Basophils % (auto) 1.4 % (0.0-2.0); Eosinophils # (auto) 0.1 uL; Eosinophils % (auto) 2.1 % (0.0-7.0); Hematocrit 30.9 % (41.0-53.0); Lymphocytes # (auto) 1.5 uL; Lymphocytes % (auto) 22.8 % (10.0-50.0); Mean Corpuscular Hemoglobin 30.6 pg (28.0-32.0); Mean Corpuscular Volume 93.9 fL (80.0-100.0); Monocytes # (auto) 0.5 uL; Monocytes % (auto) 8.4 % (0.0-12.0); Neutrophils % (auto) 65.3 % (37.0-80.0); Nucleated Red Blood Cells % 0.1 %; Platelet Count (auto) 531 10^3/uL (140-450); Red Blood Cells 3.29 10^6/uL (4.5-5.90); Red Cell Distribution Width 13.6 % (11.8-14.3)
[2017-10-18 09:11] LABS: INR 1.22 (0.9-1.15); Partial Thromboplastin Time 29.6 sec (23.78-33.04); Prothrombin Time 12.9 sec (9.27-12.13)
[2017-10-18] MEDS ORDERED: SODIUM CHLORIDE LOCK 10 ML ONE (09:22)
[2017-10-18] MEDS ORDERED: MIDAZOLAM HCL 5 MG/ML-1ML VIAL ONE (09:23)
[2017-10-18] MEDS ORDERED: diphenhdrAMINE HCL 50 MG/1 ML VL ONE (09:23)
[2017-10-18] MEDS ORDERED: fentaNYL CITRATE 100 MCG/2 ML VL ONE (09:23)
[2017-10-18] MEDS: DOCUSATE ORAL LIQUID 100 MG/10 ML UD GT SCH (10:38)
[2017-10-18] MEDS: THIAMINE HCL 100 MG TAB PO SCH (10:38)
[2017-10-18] MEDS: FAMOTIDINE 20 MG TAB PO SCH (10:38)
[2017-10-18] MEDS: MULTIPLE VITAMIN TAB PO SCH (10:39)
[2017-10-18] MEDS: amLODIPine BESYLATE 5 MG TAB PO SCH (10:42)
[2017-10-18] MEDS: cloNIDine HCL 0.1 MG TAB PO SCH ×2 (10:43→22:26)
[2017-10-18] MEDS: FLORASTOR (S. BOULARDII) 250 MG CAP PO SCH (10:43)
[2017-10-18] MEDS ORDERED: EPINEPHrine HCL 1 MG/10 ML SYRG ONE (13:48)
[2017-10-18] MEDS ORDERED: LIDOCAINE VISCOUS 2% 15ML UD ONE (13:49)
[2017-10-18] MEDS ORDERED: POTASSIUM CHL 20MEQ/100ML 100 ML IV ONE (14:30)
[2017-10-18] MEDS ORDERED: Vital High Protein 1liter Bottle GT SCH (16:15)
[2017-10-18] MEDS: ATORVASTATIN 20 MG TAB PO SCH (22:26)
[2017-10-19] VITALS (10 sets, daily range): BP systolic 129–149; BP diastolic 66–102
[2017-10-19] MEDS: ALBUTEROL SULF 2.5 MG/0.5ML(0.5%) NEB SOLN NEB SCH ×6 (02:44→22:03)
[2017-10-19] MEDS: IPRATROPIUM BROM 0.5 MG/2.5ML INH SOL NEB SCH ×5 (02:44→22:03)
[2017-10-19] MEDS: AMPICILLIN SOD 2GM INJ 2 GM in SODIUM CHL 0.9% 100 ML IV SCH ×5 (06:00→18:14)
[2017-10-19] MEDS: PANTOPRAZOLE 40 MG/10 ML VIAL IV SCH (09:28)
[2017-10-19] MEDS: FLORASTOR (S. BOULARDII) 250 MG CAP PO SCH (09:28)
[2017-10-19] MEDS: DOCUSATE ORAL LIQUID 100 MG/10 ML UD GT SCH (09:28)
[2017-10-19] MEDS: MULTIPLE VITAMIN TAB PO SCH (09:28)
[2017-10-19] MEDS: THIAMINE HCL 100 MG TAB PO SCH (09:28)
[2017-10-19] MEDS: amLODIPine BESYLATE 5 MG TAB PO SCH (09:29)
[2017-10-19] MEDS: cloNIDine HCL 0.1 MG TAB PO SCH ×2 (09:30→22:12)
[2017-10-19] MEDS ORDERED: ceFAZolin 1GM/50ML 50 ML IV ONE (10:52)
[2017-10-19 11:12] LABS: INR 1.23 (0.9-1.15)
[2017-10-19] MEDS ORDERED: POVIDONE IODINE 10 % TOPICAL OINT 30GM TOP ONE (13:04)
[2017-10-19] MEDS: ATORVASTATIN 20 MG TAB PO SCH (22:12)
[2017-10-20] VITALS: BP 129/95
[2017-10-20] MEDS: AMPICILLIN SOD 2GM INJ 2 GM in SODIUM CHL 0.9% 100 ML IV SCH ×4 (00:51→17:29)
[2017-10-20] MEDS: ALBUTEROL SULF 2.5 MG/0.5ML(0.5%) NEB SOLN NEB SCH ×5 (02:12→23:13)
[2017-10-20] MEDS: IPRATROPIUM BROM 0.5 MG/2.5ML INH SOL NEB SCH ×5 (02:12→23:12)
[2017-10-20 04:00] VITALS: BP 157/105
[2017-10-20 05:31] LABS: Anion Gap 9 (5-15); BUN/Creatinine Ratio 21.1; Blood Urea Nitrogen 19 mg/dL (7-18); Calcium 8.6 mg/dL (8.5-10.1); Carbon Dioxide 19 mmol/L (21-32); Chloride 116 mmol/L (98-107); GFR African American 112 mL/min; GFR Non-African American 93 mL/min; Glucose 105 mg/dL (74-106); Potassium 4.2 mmol/L (3.5-5.1); Sodium 144 mmol/L (136-145)
[2017-10-20 06:30] LABS: Hematocrit 30.5 % (41.0-53.0); Hemoglobin 10.2 g/dL (13.5-17.5)
[2017-10-20 08:00] VITALS: BP 162/109
[2017-10-20] MEDS ORDERED: hydrALAZINE HCL 25 MG TAB PO ONE (10:54)
[2017-10-20 12:00] VITALS: BP 127/92
[2017-10-20] MEDS: DOCUSATE ORAL LIQUID 100 MG/10 ML UD GT SCH (12:38)
[2017-10-20] MEDS: PANTOPRAZOLE 40 MG/10 ML VIAL IV SCH (12:54)
[2017-10-20] MEDS: cloNIDine HCL 0.1 MG TAB PO SCH ×2 (13:00→22:53)
[2017-10-20] MEDS: FLORASTOR (S. BOULARDII) 250 MG CAP PO SCH (13:00)
[2017-10-20] MEDS: MULTIPLE VITAMIN TAB PO SCH (13:01)
[2017-10-20] MEDS: amLODIPine BESYLATE 5 MG TAB PO SCH (13:01)
[2017-10-20] MEDS: THIAMINE HCL 100 MG TAB PO SCH (13:02)
[2017-10-20] MEDS: hydrALAZINE HCL 25 MG TAB PO SCH ×2 (14:24→22:54)
[2017-10-20 16:00] VITALS: BP 106/72
[2017-10-20 20:00] VITALS: BP 142/96
[2017-10-20] MEDS: ATORVASTATIN 20 MG TAB PO SCH (22:54)
[2017-10-21] VITALS: BP 131/70
[2017-10-21] MEDS: AMPICILLIN SOD 2GM INJ 2 GM in SODIUM CHL 0.9% 100 ML IV SCH ×2 (00:21→07:34)
[2017-10-21] MEDS: IPRATROPIUM BROM 0.5 MG/2.5ML INH SOL NEB SCH ×6 (02:30→22:32)
[2017-10-21] MEDS: ALBUTEROL SULF 2.5 MG/0.5ML(0.5%) NEB SOLN NEB SCH ×6 (02:30→22:32)
[2017-10-21 04:00] VITALS: BP 152/99
[2017-10-21] MEDS: hydrALAZINE HCL 25 MG TAB PO SCH ×2 (07:35→14:10)
[2017-10-21 08:00] VITALS: BP 141/105
[2017-10-21] MEDS: DOCUSATE ORAL LIQUID 100 MG/10 ML UD GT SCH (10:51)
[2017-10-21] MEDS: PANTOPRAZOLE 40 MG/10 ML VIAL IV SCH (10:51)
[2017-10-21] MEDS: THIAMINE HCL 100 MG TAB PO SCH (10:52)
[2017-10-21] MEDS: FLORASTOR (S. BOULARDII) 250 MG CAP PO SCH (10:53)
[2017-10-21] MEDS: cloNIDine HCL 0.1 MG TAB PO SCH ×2 (10:53→22:00)
[2017-10-21] MEDS: amLODIPine BESYLATE 5 MG TAB PO SCH (10:54)
[2017-10-21] MEDS: MULTIPLE VITAMIN TAB PO SCH (10:54)
[2017-10-21 12:00] VITALS: BP 158/94
[2017-10-21 16:30] VITALS: BP 106/68
[2017-10-22] VITALS (7 sets, daily range): BP systolic 125–149; BP diastolic 90–101
[2017-10-22] MEDS: ALBUTEROL SULF 2.5 MG/0.5ML(0.5%) NEB SOLN NEB SCH ×6 (02:20→22:27)
[2017-10-22] MEDS: IPRATROPIUM BROM 0.5 MG/2.5ML INH SOL NEB SCH ×6 (02:20→22:27)
[2017-10-22 05:11] LABS: Basophils # (auto) 0.1 uL; Basophils % (auto) 1.5 % (0.0-2.0); Eosinophils # (auto) 0.3 uL; Eosinophils % (auto) 4.5 % (0.0-7.0); Hematocrit 33.5 % (41.0-53.0); Hemoglobin 10.8 g/dL (13.5-17.5); Lymphocytes # (auto) 1.6 uL; Lymphocytes % (auto) 28.2 % (10.0-50.0); Mean Corpuscular Hemoglobin 30.1 pg (28.0-32.0); Mean Corpuscular Hgb Conc. 32.4 g/dL (32.0-36.0); Monocytes # (auto) 0.4 uL; Monocytes % (auto) 7.7 % (0.0-12.0); Neutrophils # (auto) 3.4 uL; Neutrophils % (auto) 58.1 % (37.0-80.0); Nucleated Red Blood Cells % 0.1 %; Platelet Count (auto) 379 10^3/uL (140-450); Red Cell Distribution Width 13.7 % (11.8-14.3); White Blood Cell 5.8 10^3/uL (4.4-10.8)
[2017-10-22 05:35] LABS: BUN/Creatinine Ratio 22.1; Calcium 9.1 mg/dL (8.5-10.1); Potassium 3.8 mmol/L (3.5-5.1)
[2017-10-22] MEDS: cloNIDine HCL 0.1 MG TAB PO SCH ×2 (11:32→21:34)
[2017-10-22] MEDS: DOCUSATE ORAL LIQUID 100 MG/10 ML UD GT SCH (11:32)
[2017-10-22] MEDS: MULTIPLE VITAMIN TAB PO SCH (11:32)
[2017-10-22] MEDS: FLORASTOR (S. BOULARDII) 250 MG CAP PO SCH (11:32)
[2017-10-22] MEDS: THIAMINE HCL 100 MG TAB PO SCH (11:32)
[2017-10-22] MEDS: PANTOPRAZOLE 40 MG/10 ML VIAL IV SCH (11:32)
[2017-10-22] MEDS: amLODIPine BESYLATE 5 MG TAB PO SCH (11:33)
[2017-10-22] MEDS: hydrALAZINE HCL 25 MG TAB PO SCH (21:33)
[2017-10-22] MEDS: ATORVASTATIN 20 MG TAB PO SCH (21:34)
[2017-10-23] VITALS: BP 117/57
[2017-10-23] MEDS: ALBUTEROL SULF 2.5 MG/0.5ML(0.5%) NEB SOLN NEB SCH ×6 (02:51→22:48)
[2017-10-23] MEDS: IPRATROPIUM BROM 0.5 MG/2.5ML INH SOL NEB SCH ×6 (02:52→22:48)
[2017-10-23 04:00] VITALS: BP 131/86
[2017-10-23 05:25] LABS: Basophils # (auto) 0 uL; Basophils % (auto) 0.5 % (0.0-2.0); Eosinophils # (auto) 0.1 uL; Eosinophils % (auto) 1.5 % (0.0-7.0); Hematocrit 33.3 % (41.0-53.0); Hemoglobin 10.6 g/dL (13.5-17.5); Lymphocytes # (auto) 1.6 uL; Lymphocytes % (auto) 18.2 % (10.0-50.0); Mean Corpuscular Hemoglobin 30.4 pg (28.0-32.0); Mean Corpuscular Hgb Conc. 31.9 g/dL (32.0-36.0); Mean Corpuscular Volume 95.5 fL (80.0-100.0); Monocytes # (auto) 0.5 uL; Monocytes % (auto) 5.9 % (0.0-12.0); Neutrophils # (auto) 6.7 uL; Neutrophils % (auto) 73.9 % (37.0-80.0); Platelet Count (auto) 309 10^3/uL (140-450); Red Blood Cells 3.49 10^6/uL (4.5-5.90); Red Cell Distribution Width 14.2 % (11.8-14.3)
[2017-10-23] MEDS: hydrALAZINE HCL 25 MG TAB PO SCH (05:47)
[2017-10-23 09:04] VITALS: BP 135/101
[2017-10-23] MEDS: cloNIDine HCL 0.1 MG TAB PO SCH ×2 (10:00→22:52)
[2017-10-23] MEDS: FLORASTOR (S. BOULARDII) 250 MG CAP PO SCH (11:00)
[2017-10-23] MEDS: PANTOPRAZOLE 40 MG/10 ML VIAL IV SCH (11:00)
[2017-10-23] MEDS: THIAMINE HCL 100 MG TAB PO SCH (11:00)
[2017-10-23] MEDS ORDERED: LABETALOL HCL 5 MG/ML ML 20ML VIAL IV PRN (11:15)
[2017-10-23] MEDS ORDERED: DOCUSATE ORAL LIQUID 100 MG/10 ML UD GT ONE (11:15)
[2017-10-23] MEDS ORDERED: amLODIPine BESYLATE 5 MG TAB PO ONE (11:15)
[2017-10-23] MEDS ORDERED: PANTOPRAZOLE 40 MG TAB PO ONE (11:15)
[2017-10-23] MEDS ORDERED: MULTIPLE VITAMIN TAB PO ONE (11:15)
[2017-10-23 11:55] VITALS: BP 150/70
[2017-10-23 15:51] VITALS: BP 148/82
[2017-10-23 19:50] VITALS: BP 138/92
[2017-10-23] MEDS: ATORVASTATIN 20 MG TAB PO SCH (22:52)
[2017-10-24] VITALS (7 sets, daily range): BP systolic 111–145; BP diastolic 77–95
[2017-10-24] MEDS: ACETAMINOPHEN 650 mg PER 20 mL UD GT PRN (00:54)
[2017-10-24] MEDS: ALBUTEROL SULF 2.5 MG/0.5ML(0.5%) NEB SOLN NEB SCH ×6 (02:36→22:07)
[2017-10-24] MEDS: IPRATROPIUM BROM 0.5 MG/2.5ML INH SOL NEB SCH ×6 (02:37→22:07)
[2017-10-24 06:01] LABS: Calcium 8.7 mg/dL (8.5-10.1); Magnesium 2.3 mg/dL (1.6-2.6); Potassium 4.3 mmol/L (3.5-5.1)
[2017-10-24 09:17] LABS: Basophils # (auto) 0.1 uL; Basophils % (auto) 0.8 % (0.0-2.0); Eosinophils # (auto) 0.1 uL; Hematocrit 35.6 % (41.0-53.0); Hemoglobin 11.4 g/dL (13.5-17.5); Lymphocytes # (auto) 1.4 uL; Mean Corpuscular Hemoglobin 30.5 pg (28.0-32.0); Mean Corpuscular Hgb Conc. 31.9 g/dL (32.0-36.0); Mean Corpuscular Volume 95.6 fL (80.0-100.0); Monocytes # (auto) 0.5 uL; Monocytes % (auto) 5.5 % (0.0-12.0); Neutrophils # (auto) 7.7 uL; Neutrophils % (auto) 78.7 % (37.0-80.0); Platelet Count (auto) 277 10^3/uL (140-450); Red Blood Cells 3.73 10^6/uL (4.5-5.90); White Blood Cell 9.8 10^3/uL (4.4-10.8)
[2017-10-24] MEDS: DOCUSATE ORAL LIQUID 100 MG/10 ML UD GT SCH (10:07)
[2017-10-24] MEDS: THIAMINE HCL 100 MG TAB PO SCH (10:08)
[2017-10-24] MEDS: PANTOPRAZOLE 40 MG TAB PO SCH (10:09)
[2017-10-24] MEDS: MULTIPLE VITAMIN TAB PO SCH (10:09)
[2017-10-24] MEDS: amLODIPine BESYLATE 5 MG TAB PO SCH (10:09)
[2017-10-24] MEDS ORDERED: VANCOMYCIN 1GM/250ML 250 ML IV ONE (11:00)
[2017-10-24 11:04] LABS: Urine Bacteria NONE SEEN /hpf (None Seen); Urine Blood 2+ /uL (Negative); Urine Mucus FEW (None Seen); Urine Specific Gravity 1.028 (1.001-1.035); Urine WBC 3 /hpf (0 - 3)
[2017-10-24] MEDS: PIPERACILLIN-TAZOB 3.375GM 100 ML IV SCH ×2 (13:07→17:39)
[2017-10-24] MEDS: cloNIDine HCL 0.1 MG TAB PO SCH ×2 (14:00→22:06)
[2017-10-24] MEDS: ATORVASTATIN 20 MG TAB PO SCH (22:03)
[2017-10-25] MEDS: PIPERACILLIN-TAZOB 3.375GM 100 ML IV SCH ×5 (00:09→23:47)
[2017-10-25] MEDS: IPRATROPIUM BROM 0.5 MG/2.5ML INH SOL NEB SCH ×6 (02:52→22:18)
[2017-10-25] MEDS: ALBUTEROL SULF 2.5 MG/0.5ML(0.5%) NEB SOLN NEB SCH ×6 (02:52→22:18)
[2017-10-25 03:46] VITALS: BP 124/79
[2017-10-25 05:56] LABS: Basophils # (auto) 0.1 uL; Basophils % (auto) 0.7 % (0.0-2.0); Eosinophils # (auto) 0.1 uL; Eosinophils % (auto) 0.8 % (0.0-7.0); Hematocrit 31.9 % (41.0-53.0); Hemoglobin 10.7 g/dL (13.5-17.5); Lymphocytes # (auto) 1.5 uL; Lymphocytes % (auto) 20.3 % (10.0-50.0); Mean Corpuscular Hemoglobin 31.2 pg (28.0-32.0); Mean Corpuscular Hgb Conc. 33.6 g/dL (32.0-36.0); Monocytes # (auto) 0.8 uL; Monocytes % (auto) 11.1 % (0.0-12.0); Neutrophils # (auto) 5.1 uL; Neutrophils % (auto) 67.1 % (37.0-80.0); Platelet Count (auto) 236 10^3/uL (140-450); Red Blood Cells 3.43 10^6/uL (4.5-5.90); Red Cell Distribution Width 13.8 % (11.8-14.3); White Blood Cell 7.6 10^3/uL (4.4-10.8)
[2017-10-25 06:14] LABS: BUN/Creatinine Ratio 16.5; Calcium 8.8 mg/dL (8.5-10.1); Potassium 3.9 mmol/L (3.5-5.1)
[2017-10-25 08:00] VITALS: BP 118/83
[2017-10-25 10:49] LABS: Urine Bacteria FEW /hpf (None Seen); Urine Blood 2+ /uL (Negative); Urine Mucus FEW (None Seen); Urine WBC 4 /hpf (0 - 3)
[2017-10-25] MEDS: DOCUSATE ORAL LIQUID 100 MG/10 ML UD GT SCH (11:00)
[2017-10-25] MEDS: MULTIPLE VITAMIN TAB PO SCH (11:01)
[2017-10-25] MEDS: PANTOPRAZOLE 40 MG TAB PO SCH (11:01)
[2017-10-25] MEDS: cloNIDine HCL 0.1 MG TAB PO SCH ×2 (11:01→22:06)
[2017-10-25] MEDS: amLODIPine BESYLATE 5 MG TAB PO SCH (11:02)
[2017-10-25] MEDS: THIAMINE HCL 100 MG TAB PO SCH (11:03)
[2017-10-25 11:46] VITALS: BP 123/82
[2017-10-25 15:50] VITALS: BP 128/79
[2017-10-25 19:50] VITALS: BP 130/87
[2017-10-25 21:38] VITALS: BP 130/87
[2017-10-25] MEDS: ATORVASTATIN 20 MG TAB PO SCH (22:06)
[2017-10-26 00:04] VITALS: BP 112/85
[2017-10-26] MEDS: ACETAMINOPHEN 650 mg PER 20 mL UD GT PRN ×2 (01:56→15:53)
[2017-10-26] MEDS: ALBUTEROL SULF 2.5 MG/0.5ML(0.5%) NEB SOLN NEB SCH ×6 (02:00→22:35)
[2017-10-26] MEDS: IPRATROPIUM BROM 0.5 MG/2.5ML INH SOL NEB SCH ×6 (02:00→22:35)
[2017-10-26 04:00] VITALS: BP 125/92
[2017-10-26 05:46] LABS: Basophils # (auto) 0 uL; Basophils % (auto) 0.4 % (0.0-2.0); Eosinophils # (auto) 0.2 uL; Eosinophils % (auto) 2.7 % (0.0-7.0); Hematocrit 29.9 % (41.0-53.0); Hemoglobin 9.9 g/dL (13.5-17.5); Lymphocytes # (auto) 1.9 uL; Lymphocytes % (auto) 34.4 % (10.0-50.0); Mean Corpuscular Hemoglobin 30.8 pg (28.0-32.0); Mean Corpuscular Hgb Conc. 33.2 g/dL (32.0-36.0); Mean Corpuscular Volume 92.9 fL (80.0-100.0); Monocytes # (auto) 0.6 uL; Monocytes % (auto) 11.5 % (0.0-12.0); Neutrophils # (auto) 2.8 uL; Platelet Count (auto) 228 10^3/uL (140-450); Red Blood Cells 3.22 10^6/uL (4.5-5.90); Red Cell Distribution Width 13.6 % (11.8-14.3); White Blood Cell 5.5 10^3/uL (4.4-10.8)
[2017-10-26] MEDS: PIPERACILLIN-TAZOB 3.375GM 100 ML IV SCH ×3 (05:49→18:57)
[2017-10-26 06:00] LABS: BUN/Creatinine Ratio 16.1; Calcium 8.6 mg/dL (8.5-10.1); Potassium 3.7 mmol/L (3.5-5.1)
[2017-10-26] MEDS: DOCUSATE ORAL LIQUID 100 MG/10 ML UD GT SCH (10:00)
[2017-10-26] MEDS: PANTOPRAZOLE 40 MG TAB PO SCH (11:15)
[2017-10-26] MEDS: MULTIPLE VITAMIN TAB PO SCH (11:15)
[2017-10-26] MEDS: THIAMINE HCL 100 MG TAB PO SCH (11:15)
[2017-10-26 11:57] VITALS: BP 128/83
[2017-10-26 15:59] VITALS: BP 128/94
[2017-10-26 19:48] VITALS: BP 146/97
[2017-10-26] MEDS: cloNIDine HCL 0.1 MG TAB PO SCH (21:39)
[2017-10-26] MEDS: ATORVASTATIN 20 MG TAB PO SCH (21:39)
[2017-10-27] VITALS (9 sets, daily range): BP systolic 122–133; BP diastolic 61–92
[2017-10-27] MEDS: PIPERACILLIN-TAZOB 3.375GM 100 ML IV SCH ×3 (00:09→11:43)
[2017-10-27] MEDS: ALBUTEROL SULF 2.5 MG/0.5ML(0.5%) NEB SOLN NEB SCH ×4 (02:28→14:50)
[2017-10-27] MEDS: IPRATROPIUM BROM 0.5 MG/2.5ML INH SOL NEB SCH ×4 (02:28→14:50)
[2017-10-27] MEDS: ACETAMINOPHEN 650 mg PER 20 mL UD GT PRN (05:44)
[2017-10-27] MEDS: DOCUSATE ORAL LIQUID 100 MG/10 ML UD GT SCH (10:00)
[2017-10-27] MEDS ORDERED: amLODIPine BESYLATE 5 MG TAB PO SCH (10:00)
[2017-10-27] MEDS: THIAMINE HCL 100 MG TAB PO SCH (10:00)
[2017-10-27] MEDS: PANTOPRAZOLE 40 MG TAB PO SCH (10:00)
[2017-10-27] MEDS: cloNIDine HCL 0.1 MG TAB PO SCH (11:32)
[2017-10-27] MEDS: MULTIPLE VITAMIN TAB PO SCH (11:32)
== END 2017-10-27 18:58 | disposition short-term general hospital (02) | DRG 208 ==
LOC: ICU WEST 20:54 → DOU IN ICU 10-19 08:00
PROVIDERS: ADMIT Family Medicine; ATTEND Internal Medicine
PROC: 5A1945Z Respiratory Ventilation, 24-96 Consecutive Hours (ICD-10-PCS; principal; 2017-10-10)
PROC: 0BH17EZ Insertion of Endotracheal Airway into Trachea, Via Natural or Artificial Opening (ICD-10-PCS; 2017-10-10)
PROC: 0DJ08ZZ Inspection of Upper Intestinal Tract, Via Natural or Artificial Opening Endoscopic (ICD-10-PCS; 2017-10-18)
DX: J95.821 Acute postprocedural respiratory failure (principal); G92 Toxic encephalopathy; G93.6 Cerebral edema; I61.5 Nontraumatic intracerebral hemorrhage, intraventricular; J18.9 Pneumonia, unspecified organism; D62 Acute posthemorrhagic anemia; G91.9 Hydrocephalus, unspecified; G93.1 Anoxic brain damage, not elsewhere classified; J98.11 Atelectasis; G96.0 Cerebrospinal fluid leak; G81.94 Hemiplegia, unspecified affecting left nondominant side; D18.1 Lymphangioma, any site; E78.5 Hyperlipidemia, unspecified; F10.10 Alcohol abuse, uncomplicated; F15.10 Other stimulant abuse, uncomplicated; F17.210 Nicotine dependence, cigarettes, uncomplicated; G93.89 Other specified disorders of brain; H53.462 Homonymous bilateral field defects, left side; I11.0 Hypertensive heart disease with heart failure; I70.0 Atherosclerosis of aorta; J34.1 Cyst and mucocele of nose and nasal sinus; I50.9 Heart failure, unspecified; J20.9 Acute bronchitis, unspecified; J45.909 Unspecified asthma, uncomplicated; K20.9 Esophagitis, unspecified; M10.9 Gout, unspecified; R13.10 Dysphagia, unspecified; Y83.8 Other surgical procedures as the cause of abnormal reaction of the patient, or of later complication, without mention of misadventure at the time of the procedure; R56.9 Unspecified convulsions; Z82.49 Family history of ischemic heart disease and other diseases of the circulatory system; Z83.3 Family history of diabetes mellitus; Z86.73 Personal history of transient ischemic attack (TIA), and cerebral infarction without residual deficits; Z80.9 Family history of malignant neoplasm, unspecified; Z88.6 Allergy status to analgesic agent; Y92.89 Other specified places as the place of occurrence of the external cause
CPT/HCPCS: 31720; 36415; 36600; 43235; 70450; 71045; 80048; 80053; 80061; 81001; 82805; 82962; 83735; 84100; 84132; 85014; 85018; 85025; 85610; 85730; 87040; 87070; 87081; 87086; 87205; 92610; 94002; 94003; 94640; 94667; 94668; 95819; 97110; 97163; 97530; A6257; C9113; J0461; J0690; J2250; J2543; J2704; J3480

== ENCOUNTER 2018-01-03 23:03 | Emergency (ER) | payer OTHER, MEDICAID ==
[~2018-01-03] VITALS: Ht 172.7 cm; Wt 77.1 kg
[~2018-01-03 23:03] MED LIST changes: +AMLO5TAB13 PO; -AMLO5TAB2 PO
[2018-01-04 00:03] LABS: Basophils # (auto) 0 uL; Basophils % (auto) 0.6 % (0.0-2.0); Eosinophils # (auto) 0.1 uL; Eosinophils % (auto) 1.3 % (0.0-7.0); Hematocrit 42.7 % (41.0-53.0); Lymphocytes # (auto) 1.5 uL; Mean Corpuscular Hemoglobin 28.2 pg (28.0-32.0); Mean Corpuscular Hgb Conc. 32.8 g/dL (32.0-36.0); Monocytes # (auto) 0.6 uL; Monocytes % (auto) 9.8 % (0.0-12.0); Neutrophils # (auto) 3.7 uL; Neutrophils % (auto) 62.3 % (37.0-80.0); Platelet Count (auto) 383 10^3/uL (140-450); Red Blood Cells 4.96 10^6/uL (4.5-5.90); Red Cell Distribution Width 15.6 % (11.8-14.3); White Blood Cell 5.9 10^3/uL (4.4-10.8)
[2018-01-04 00:17] LABS: Alanine Aminotransferase 21 U/L (16-61); Albumin 3.2 g/dL (3.4-5.0); Anion Gap 10 (5-15); Aspartate Aminotransferase 35 U/L (15-37); BUN/Creatinine Ratio 11.3; Blood Alcohol < 3.0 mg/dL (0-5); Blood Urea Nitrogen 12 mg/dL (7-18); Calcium 9.1 mg/dL (8.5-10.1); Carbon Dioxide 21 mmol/L (21-32); Chloride 110 mmol/L (98-107); GFR African American 93 mL/min; GFR Non-African American 77 mL/min; Glucose 99 mg/dL (74-106); Magnesium 1.9 mg/dL (1.6-2.6); Sodium 141 mmol/L (136-145)
[2018-01-04 00:27] LABS: Alkaline Phosphatase 107 U/L (45-117); Bilirubin, Total 0.5 mg/dL (0.2-1.0); Total Protein 8.1 g/dL (6.4-8.2)
[2018-01-04 00:36] LABS: Salicylate < 1.7 mg/dL (2.8-20.0)
[2018-01-04 00:37] LABS: Acetaminophen < 2.0 ug/mL (10-30)
[2018-01-04] MEDS ORDERED: SODIUM CHLORIDE 0.9% 1,000 ML IV SCH (01:00)
[2018-01-04] MEDS ORDERED: SODIUM CHLORIDE 0.9% 1,000 ML IV ONE (01:00)
[2018-01-04 02:38] LABS: Urine Bacteria FEW /hpf (None Seen); Urine Blood Negative /uL (Negative); Urine Specific Gravity 1.032 (1.001-1.035); Urine WBC 33 /hpf (0 - 3)
[2018-01-04 02:43] LABS: Alcohol, Urine < 3.0 mg/dL (0-5); Amphetamine Screen, Urine NEGATIVE (NEGATIVE); Barbiturate Scree,Urine NEGATIVE (NEGATIVE); Benzodiazephine Screen, Urine NEGATIVE (NEGATIVE); Cannabinoid Screen, Urine NEGATIVE (NEGATIVE); Cocaine Screen, Urine NEGATIVE (NEGATIVE); Opiate Scree,Urine NEGATIVE (NEGATIVE); Phencyclidine Screen, Urine NEGATIVE (NEGATIVE)
[2018-01-04 05:58] VITALS: BP 121/90
== END 2018-01-04 06:28 | disposition short-term general hospital (02) ==
LOC: ER 23:03 → EDBD 23:03 → ER 01-04 06:28
DX: E86.0 Dehydration (principal); N39.0 Urinary tract infection, site not specified; F12.10 Cannabis abuse, uncomplicated; F15.10 Other stimulant abuse, uncomplicated; F17.210 Nicotine dependence, cigarettes, uncomplicated; I11.0 Hypertensive heart disease with heart failure; I50.9 Heart failure, unspecified; E78.5 Hyperlipidemia, unspecified; Z86.73 Personal history of transient ischemic attack (TIA), and cerebral infarction without residual deficits
CPT/HCPCS: 36415; 70450; 71045; 72125; 80053; 80307; 80320; 80329; 81001; 82140; 83605; 83735; 84484; 85025; 87040; 93005; 96360; 96361; 99285; J7030

== ENCOUNTER 2018-01-10 14:36 | Observation (INO) | payer OTHER, MEDICAID ==
[~2018-01-10] VITALS: Ht 188 cm; Wt 95.3 kg
[2018-01-10 16:05] LABS: Basophils # (auto) 0 uL; Basophils % (auto) 0.5 % (0.0-2.0); Eosinophils # (auto) 0 uL; Hematocrit 39.9 % (41.0-53.0); Hemoglobin 13.1 g/dL (13.5-17.5); Lymphocytes # (auto) 0.8 uL; Mean Corpuscular Hgb Conc. 32.9 g/dL (32.0-36.0); Mean Corpuscular Volume 85.2 fL (80.0-100.0); Monocytes # (auto) 0.3 uL; Monocytes % (auto) 3.3 % (0.0-12.0); Neutrophils # (auto) 8.1 uL; Neutrophils % (auto) 87.2 % (37.0-80.0); Platelet Count (auto) 428 10^3/uL (140-450); Red Blood Cells 4.68 10^6/uL (4.5-5.90); Red Cell Distribution Width 15.3 % (11.8-14.3); White Blood Cell 9.3 10^3/uL (4.4-10.8)
[2018-01-10] MEDS ORDERED: SODIUM CHLORIDE 0.9% 1,000 ML IVB ONE (16:09)
[2018-01-10 16:22] LABS: Albumin 3.3 g/dL (3.4-5.0); Anion Gap 8 (5-15); Aspartate Aminotransferase 12 U/L (15-37); Blood Alcohol < 3.0 mg/dL (0-5); Blood Urea Nitrogen 8 mg/dL (7-18); Calcium 8.7 mg/dL (8.5-10.1); Carbon Dioxide 26 mmol/L (21-32); Chloride 104 mmol/L (98-107); GFR African American 142 mL/min; GFR Non-African American 118 mL/min; Glucose 155 mg/dL (74-106); Potassium 4.4 mmol/L (3.5-5.1); Sodium 138 mmol/L (136-145)
[2018-01-10 16:26] LABS: Alanine Aminotransferase 19 U/L (16-61); Alkaline Phosphatase 109 U/L (45-117); Bilirubin, Total 0.2 mg/dL (0.2-1.0); Total Protein 8.3 g/dL (6.4-8.2)
[2018-01-10] MEDS ORDERED: LORazepam 2MG/ML-1ML VIAL ONE (16:50)
[2018-01-10] MEDS ORDERED: LEVETIRACETAM INJ 1,000 MG in D5W 5% 100 ML IV ONE (17:00)
[2018-01-10 17:10] LABS: Alcohol, Urine < 3.0 mg/dL (0-5); Amphetamine Screen, Urine NEGATIVE (NEGATIVE); Barbiturate Scree,Urine NEGATIVE (NEGATIVE); Benzodiazephine Screen, Urine NEGATIVE (NEGATIVE); Cannabinoid Screen, Urine NEGATIVE (NEGATIVE); Cocaine Screen, Urine NEGATIVE (NEGATIVE); Opiate Scree,Urine NEGATIVE (NEGATIVE); Phencyclidine Screen, Urine NEGATIVE (NEGATIVE)
[2018-01-10 17:11] LABS: Urine Bacteria NONE SEEN /hpf (None Seen); Urine Blood 3+ /uL (Negative); Urine Mucus FEW (None Seen); Urine Specific Gravity 1.016 (1.001-1.035); Urine WBC 21 /hpf (0 - 3)
[2018-01-10] MEDS ORDERED: LORazepam 2MG/ML-1ML VIAL IV ONE (17:15)
[2018-01-10 17:56] LABS: INR 1.04 (0.9-1.15); Partial Thromboplastin Time 28.7 sec (23.78-33.04); Prothrombin Time 11.1 sec (9.27-12.13)
[2018-01-10] MEDS ORDERED: SUCCINYLCHOLINE CHLORIDE 20 MG/ML 10ML VIAL IV ONE (18:00)
[2018-01-10] MEDS ORDERED: ETOMIDATE (2MG/ML) 20ML VIAL IV ONE ×2 (18:00→18:15)
[2018-01-10] MEDS ORDERED: MIDAZOLAM DRIP 50 mg/50mL 50 ML IV SCH (18:29)
[2018-01-10] MEDS ORDERED: MIDAZOLAM DRIP 50 mg/50mL 50 ML IV ONE ×2 (18:31→18:34)
[2018-01-10 19:27] VITALS: BP 124/74
[2018-01-17] MEDS ORDERED: LEVE500T22 PO (13:21)
[2018-01-17] MEDS ORDERED: PANT40TA2 PO (13:24)
[2018-01-26] MEDS ORDERED: ATOR20TA50 PO (09:18)
[2018-01-26] MEDS ORDERED: AML5T PO (09:18)
[2018-01-26] MEDS ORDERED: FAM20T PEG (09:34)
== END 2018-01-10 20:06 | disposition short-term general hospital (02) | DRG 100 ==
LOC: EDBD 14:36 → ER 14:36 → OVERFLOW 14:37 → ER 20:06
PROVIDERS: ADMIT Family Medicine; ATTEND Family Medicine
DX: G40.901 Epilepsy, unspecified, not intractable, with status epilepticus (principal); I61.9 Nontraumatic intracerebral hemorrhage, unspecified; G81.94 Hemiplegia, unspecified affecting left nondominant side; F17.210 Nicotine dependence, cigarettes, uncomplicated; J45.909 Unspecified asthma, uncomplicated; I10 Essential (primary) hypertension; I50.9 Heart failure, unspecified; M10.9 Gout, unspecified; Z93.1 Gastrostomy status; Z86.73 Personal history of transient ischemic attack (TIA), and cerebral infarction without residual deficits
CPT/HCPCS: 36415; 36600; 70450; 71045; 80053; 80307; 80320; 81001; 82805; 83735; 84484; 85025; 85610; 85730; 87070; 87205; 94002; 96365; 96367; 96375; 99285; G0378; J0330; J1953; J2060; J2250; J7060

== ENCOUNTER 2018-02-15 18:54 | Emergency (ER) | payer OTHER, MEDICAID ==
[~2018-02-15] VITALS: Ht 177.8 cm; Wt 86.2 kg
[~2018-02-15 18:54] MED LIST changes: +AML5T PO; -AMLO5TAB13 PO; +ATOR20TA50 PO; +FAM20T PEG; +LEVE500T22 PO
[2018-02-15 20:39] LABS: Basophils # (auto) 0.1 uL; Basophils % (auto) 0.8 % (0.0-2.0); Eosinophils # (auto) 0 uL; Eosinophils % (auto) 0.4 % (0.0-7.0); Hematocrit 41.3 % (41.0-53.0); Hemoglobin 13.7 g/dL (13.5-17.5); Lymphocytes # (auto) 1.5 uL; Lymphocytes % (auto) 22.5 % (10.0-50.0); Mean Corpuscular Hemoglobin 27.6 pg (28.0-32.0); Mean Corpuscular Hgb Conc. 33.3 g/dL (32.0-36.0); Monocytes # (auto) 0.6 uL; Monocytes % (auto) 8.2 % (0.0-12.0); Neutrophils # (auto) 4.6 uL; Neutrophils % (auto) 68.1 % (37.0-80.0); Nucleated Red Blood Cells % 0.2 %; Platelet Count (auto) 299 10^3/uL (140-450); Red Blood Cells 4.97 10^6/uL (4.5-5.90); Red Cell Distribution Width 16.3 % (11.8-14.3); White Blood Cell 6.8 10^3/uL (4.4-10.8)
[2018-02-15 20:47] LABS: Urine Bacteria NONE SEEN /hpf (None Seen); Urine Blood Negative /uL (Negative); Urine Mucus FEW (None Seen); Urine Specific Gravity 1.036 (1.001-1.035); Urine WBC 2 /hpf (0 - 3)
[2018-02-15 20:56] LABS: INR 1.09 (0.9-1.15); Partial Thromboplastin Time 28.9 sec (23.78-33.04); Prothrombin Time 11.6 sec (9.27-12.13)
[2018-02-15 20:57] LABS: Albumin 3.5 g/dL (3.4-5.0); Anion Gap 9 (5-15); Aspartate Aminotransferase 30 U/L (15-37); Blood Urea Nitrogen 11 mg/dL (7-18); Carbon Dioxide 23 mmol/L (21-32); Chloride 111 mmol/L (98-107); GFR African American 99 mL/min; GFR Non-African American 82 mL/min; Glucose 92 mg/dL (74-106); Magnesium 1.9 mg/dL (1.6-2.6); Potassium 4.3 mmol/L (3.5-5.1); Sodium 143 mmol/L (136-145)
[2018-02-15 21:05] LABS: Alanine Aminotransferase 16 U/L (16-61); Alkaline Phosphatase 98 U/L (45-117); Bilirubin, Total 0.6 mg/dL (0.2-1.0); Total Protein 8.4 g/dL (6.4-8.2)
[2018-02-16 04:54] VITALS: BP 99/72
[2018-02-28] MEDS ORDERED: AML5T PEG (09:46)
[2018-02-28] MEDS ORDERED: MULTTAB99 PEG (09:46)
== END 2018-02-16 04:13 | disposition short-term general hospital (02) ==
LOC: EDBD 18:54 → ER 18:56
DX: T85.618A Breakdown (mechanical) of other specified internal prosthetic devices, implants and grafts, initial encounter (principal); F17.210 Nicotine dependence, cigarettes, uncomplicated; F12.10 Cannabis abuse, uncomplicated; F15.10 Other stimulant abuse, uncomplicated; I11.0 Hypertensive heart disease with heart failure; I50.9 Heart failure, unspecified; J45.909 Unspecified asthma, uncomplicated; E78.5 Hyperlipidemia, unspecified; Z88.8 Allergy status to other drugs, medicaments and biological substances; X58.XXXA Exposure to other specified factors, initial encounter; Y93.89 Activity, other specified; Y99.8 Other external cause status; Y92.89 Other specified places as the place of occurrence of the external cause
CPT/HCPCS: 36415; 70450; 71045; 80053; 81001; 83735; 84484; 85025; 85610; 85730; 93005; 94761; 99285; J7030

== ENCOUNTER 2018-06-13 16:29 | Inpatient (IN) | payer OTHER, MEDICAID ==
[~2018-06-13] VITALS: Ht 165.1 cm; Wt 62.0 kg
[~2018-06-13 16:29] MED LIST changes: +AML5T PEG; -AML5T PO; -CLON0.1T PO; +MULTTAB99 PEG
[2018-06-13 17:00] VITALS: BP 104/73
--- NOTE | 2018-06-13 17:05 | NUR ---
BR[facility] PAGED FOR ORDERS
[2018-06-13] MEDS ORDERED: ONDANSETRON HCL 4 MG/2 ML VIAL IV PRN (17:30)
[2018-06-13] MEDS ORDERED: VANCOMYCIN PER PHARMACY 0 MG IV SCH (17:30)
[2018-06-13] MEDS ORDERED: HYDROcodone-ACET 5/325MG TAB PO PRN (17:30)
[2018-06-13] MEDS ORDERED: Osmolite 1.2 Cal One Liter GT SCH (17:30)
[2018-06-13] MEDS ORDERED: NITROGLYCERIN 0.4 MG SL TAB SL PRN (17:30)
[2018-06-13] MEDS ORDERED: ACETAMINOPHEN 500 MG TAB PO PRN (17:30)
[2018-06-13] MEDS ORDERED: MORPHINE SULF INJ 2 MG/ML SYRINGE 1ML IV PRN (17:30)
[2018-06-13 17:38] VITALS: BP 104/73
--- NOTE | 2018-06-13 19:30 | NUR ---
Opening Shift Note Received report from Lori MAO. Assumed care of patient, awake and alert, non-verbal, on bedrest, LT sided deficit more prominent but generalized weakness also noted. No S/S of distress/SOB or pain at the moment, pt has a PEG, NPO status, to be administer Feeding via PEG. Instructed on POC and to call for assist PRN, will continue to monitor for changes Q1hr and PRN. Bed alarm on and call light within reach.
[2018-06-13 19:32] VITALS: BP 99/74
[2018-06-13] MEDS: IPRATROPIUM BROM 0.5 MG/2.5ML INH SOL NEB SCH (19:32)
[2018-06-13] MEDS: ALBUTEROL SULF 2.5 MG/0.5ML(0.5%) NEB SOLN NEB SCH (19:32)
[2018-06-13 20:29] VITALS: BP 99/74
--- NOTE | 2018-06-13 20:30 | NUR ---
Visitors at bedside Stanford Ozuna and Kiara Parsons .
[2018-06-13 21:45] VITALS: BP 99/74
[2018-06-13 22:08] LABS: Basophils # (auto) 0 uL; Basophils % (auto) 0.1 % (0.0-2.0); Eosinophils # (auto) 0 uL; Eosinophils % (auto) 0.1 % (0.0-7.0); Hematocrit 27.1 % (41.0-53.0); Hemoglobin 8.7 g/dL (13.5-17.5); Lymphocytes # (auto) 1.4 uL; Lymphocytes % (auto) 10.9 % (10.0-50.0); Mean Corpuscular Hemoglobin 27.2 pg (28.0-32.0); Mean Corpuscular Hgb Conc. 32.2 g/dL (32.0-36.0); Mean Corpuscular Volume 84.4 fL (80.0-100.0); Monocytes # (auto) 0.6 uL; Monocytes % (auto) 4.8 % (0.0-12.0); Neutrophils # (auto) 10.9 uL; Neutrophils % (auto) 84.1 % (37.0-80.0); Platelet Count (auto) 362 10^3/uL (140-450); Red Blood Cells 3.22 10^6/uL (4.5-5.90); Red Cell Distribution Width 16.3 % (11.8-14.3)
[2018-06-13 22:24] LABS: Calcium 8.4 mg/dL (8.5-10.1); Potassium 3.7 mmol/L (3.5-5.1)
--- NOTE | 2018-06-13 22:30 | NUR ---
Hospitalist paged to inform about PEG Tubing breaking into 2 separate pieces as a result of a flushing line prior to administer feeding. PEG tube needs to be changed in order to administer feeding. awaiting for call back.
--- NOTE | 2018-06-13 22:59 | NUR ---
NEW ORDERS RECEIVED FROM HOSPITALIST HARMEET.
[2018-06-13] MEDS ORDERED: VANCOMYCIN 1,250 MG in D5W 5% 250 ML IV SCH (23:30)
--- NOTE | 2018-06-13 23:37 | NUR ---
UNABLE TO REVIEW MED REC. PT IS NON-VERBAL, UNABLE TO AID WITH THE REVISION OF HOME MEDS.
[2018-06-14] MEDS: SODIUM CHLORIDE 0.9% 1,000 ML IV SCH ×2 (01:30→13:20)
[2018-06-14] MEDS: MORPHINE SULF INJ 2 MG/ML SYRINGE 1ML IV PRN ×3 (01:37→15:30)
[2018-06-14 05:00] VITALS: BP 113/67
[2018-06-14 06:26] LABS: Basophils # (auto) 0 uL; Basophils % (auto) 0.2 % (0.0-2.0); Eosinophils # (auto) 0 uL; Eosinophils % (auto) 0.2 % (0.0-7.0); Hemoglobin 7.8 g/dL (13.5-17.5); Lymphocytes # (auto) 1.2 uL; Monocytes # (auto) 0.5 uL
[2018-06-14 06:29] LABS: Hematocrit 23.5 % (41.0-53.0); Lymphocytes % (auto) 11.7 % (10.0-50.0); Mean Corpuscular Hemoglobin 27.7 pg (28.0-32.0); Mean Corpuscular Hgb Conc. 33.1 g/dL (32.0-36.0); Mean Corpuscular Volume 83.8 fL (80.0-100.0); Monocytes % (auto) 4.9 % (0.0-12.0); Neutrophils # (auto) 8.8 uL; Nucleated Red Blood Cells % 0.1 %; Platelet Count (auto) 355 10^3/uL (140-450); Red Blood Cells 2.81 10^6/uL (4.5-5.90); White Blood Cell 10.6 10^3/uL (4.4-10.8)
[2018-06-14 06:41] LABS: Calcium 8.3 mg/dL (8.5-10.1); Potassium 3.6 mmol/L (3.5-5.1)
[2018-06-14 06:45] LABS: BUN/Creatinine Ratio 23.6
[2018-06-14] MEDS: IPRATROPIUM BROM 0.5 MG/2.5ML INH SOL NEB SCH ×4 (06:48→18:59)
[2018-06-14] MEDS: ALBUTEROL SULF 2.5 MG/0.5ML(0.5%) NEB SOLN NEB SCH ×4 (06:48→18:59)
--- NOTE | 2018-06-14 06:49 | NUR ---
WOUND CULTURE SENT TO LAB
--- NOTE | 2018-06-14 06:49 | NUR ---
INFLUENZA A&B SWAB SENT TO LAB
--- NOTE | 2018-06-14 06:54 | NUR ---
Closing Shift Note SBAR report to be given to Harini MAO. patient is asleep, non-verbal, on bedrest, has LT sided deficit and generalized weakness. No S/S of distress/SOB or pain. Pt has a PEG, clamped at the moment, NPO status. At [facility] for tx of sepsis. Bed alarm on and receiving fluids at 75 ml/hr. Addendum: 06/14/18 at 0728 by BENITA MENDOZA RN Disregard previous 1st sentence. SBAR report to be given to Linda MAO
[2018-06-14 08:00] VITALS: BP 135/71
[2018-06-14 09:00] VITALS: BP 135/71
[2018-06-14] MEDS ORDERED: cefTRIAXone 1GM/50ML D5W 50 ML IV SCH (10:00)
[2018-06-14] MEDS: PANTOPRAZOLE 40 MG/10 ML VIAL IV SCH (10:08)
[2018-06-14] MEDS: AZITHROMYCIN 500MG/ 250ML 250 ML IV SCH (10:09)
--- NOTE | 2018-06-14 11:00 | NUR ---
WOUND CARE NOTE: Wound care in to see patient per wound care request regarding multiple wound that are noted present on admission. Bedside nurse took photographs of patient's skin issue upon admission for reference. Patient is a 57 yo male with admitting diagnosis of Sepsis. Patient has a history of right craniotomy, seizures, asthma. Patient is resting in bed in Rm. 234. Patient appears to be in no pain utilizing Jefferson doty Faces Pain scale. His current Juan score is 11. Skin/woun assessment done with the assistance of patient's nurse, MAYCO Mckeon. Patient is awake, able to say yes or no. Patient noted with multiple intact pink scar tissue from old resolving wounds on upper back and Rt lateral arm, area is clean and dry, left open to air. Patient's medial sacral has large open full thickness wound measuring [id number]. Wound bed is back, necrotic, pale pink, dusky red with palpable bone and undermining from [id number] with the deepest undermining of 2.5cm from [id number]. 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 Moderate amount serous drainage noted with foul odor. To left upper sacrum is 4x3.5cm Unstageable pressure injury. Wound bed is covered with yellow and adherent necrotic tissue with pale pink wound edges, surrounding sacral skin is hyperpigmented. Cleansed sacral wound with wound cleanser, patted dry with gauze, applied Thera honey gel to wound base area. Packed wound cavity with two pieces NS moistened 4x4's gauze, covered wounds with absorbent pad and secured with Medipore tape. Patient's L heel noted with 3x2.5cm intact DTI. Wound is dark red, soft to touch/boggy, no drainage/odor noted. Reapplied Alice foam boots back on to patient's BLE. Repositioned patient for comfort facing his L side, redistributed pressure points with pillows. Patient tolerated well. Bed in low position, call pang within reach, all safety precautions in placed. RECOMMENDATION: Daily/PRN dressing change to sacral wounds per MD order, Dietary consult, frequent turning and repositioning schedule as condition permits, redistribute pressure points with pillows, air mattress (stock receiver to bring air mattress), foam boots to BLE, continue monitoring by wound care while patient is hospitalized. Addendum: 06/14/18 at 1559 by Jami Martinez RN Amended: Modesta added.
[2018-06-14] MEDS ORDERED: PIPERACILLIN-TAZOB 3.375GM 100 ML IV SCH (12:00)
[2018-06-14 13:00] VITALS: BP 122/74
[2018-06-14] MEDS: VANCOMYCIN 1,250 MG in D5W 5% 250 ML IV SCH (13:26)
[2018-06-14] MEDS: PIPERACILLIN-TAZOB 3.375GM 100 ML IV SCH ×2 (17:53→23:45)
--- NOTE | 2018-06-14 18:03 | NUR ---
CALLED PATIENT'S [facility] REGARDING CONSENTS FOR THE EGD WITH POSSIBLE PEG PLACEMENT. LEFT MESSAGE TO CALL HERE, ALONG WITH EXTENSION. THERE WAS NO ANSWER.
[2018-06-14 18:07] VITALS: BP 124/84
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
--- NOTE | 2018-06-14 19:45 | NUR ---
open note assumed care of pt. upon entering room, pt awake 2 family members at bedside. pt non responsive, however does track with eyes when awake. no distress noted. updated family on plan of care. caban in place. 2x rails up. bed locked, low. call light in reach. will round q1hr and as needed. will turn q2hr. no additional questions by family at this time.
[2018-06-14 22:00] VITALS: BP 124/81
--- NOTE | 2018-06-15 | NUR ---
Respiratory note: ENTERED PT'S ROOM FOR SCHEDULED MED NEB TX. PT WAS SLEEPING COMFORTABLY AT THIS TIME. HR 87 , RR 16, SPO2 100% ON R/A. NO SIGNS OF ANY RESPIRATORY DISTRESS NOTED.
[2018-06-15] MEDS: VANCOMYCIN 1,250 MG in D5W 5% 250 ML IV SCH ×2 (02:10→14:14)
[2018-06-15] MEDS: SODIUM CHLORIDE 0.9% 1,000 ML IV SCH ×2 (02:11→14:14)
[2018-06-15 05:00] VITALS: BP 133/93
[2018-06-15] MEDS: PIPERACILLIN-TAZOB 3.375GM 100 ML IV SCH ×4 (06:08→23:41)
--- NOTE | 2018-06-15 08:00 | NUR ---
PT RESTING IN BED, NO DISTRESS NOTED. PT LIMBS CONTRACTED. PT RESPONDS TO VOICE WITH EYE OPENING. PT IS ABLE TO GROAN IN RESPONSE TO QUESTIONS. LARGE PRESSURE ULCER ON SACRUM WITH MODERATE DRAINAGE ON BANDAGE AND MODERATE ODOR. 100 MLS CLOUDY ORANGE URINE NOTED IN HILL. PT REPOSITIONED, WILL CONTINUE TO MONITOR. Addendum: 06/15/18 at 0909 by ARMAAN RAHMAN RN BED ALARM ON, SIDE RAILS UP X 2
[2018-06-15] MEDS: ALBUTEROL SULF 2.5 MG/0.5ML(0.5%) NEB SOLN NEB SCH ×3 (08:07→19:26)
[2018-06-15] MEDS: IPRATROPIUM BROM 0.5 MG/2.5ML INH SOL NEB SCH ×3 (08:07→19:26)
[2018-06-15] MEDS ORDERED: SODIUM CHLORIDE LOCK 10 ML ONE (08:28)
[2018-06-15] MEDS ORDERED: LIDOCAINE VISCOUS 2% 15ML UD ONE (08:29)
[2018-06-15] MEDS ORDERED: diphenhdrAMINE HCL 50 MG/1 ML VL ONE (08:29)
[2018-06-15 09:02] VITALS: BP 134/84
[2018-06-15] MEDS: PANTOPRAZOLE 40 MG/10 ML VIAL IV SCH (10:00)
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
[2018-06-15] MEDS: AZITHROMYCIN 500MG/ 250ML 250 ML IV SCH (10:19)
[2018-06-15] MEDS: MORPHINE SULF INJ 2 MG/ML SYRINGE 1ML IV PRN ×2 (10:20→21:38)
--- NOTE | 2018-06-15 10:23 | NUR ---
PT WOUND CARE DONE, SACRAL WOUND SPAYED WITH WOUND CLEANSER, 4X4 WITH NS APPLIED TO WOUND WITH NEW OPTIFOAM. MODERATE YELLOW BROWN DRAINAGE NOTED ON PREVIOUS DRESSING AND DEFINITE ODOR NOTED. PT WAS ABLE TO SAY, "MY LEGS!" WHILE DOING DRESSING CHANGE AND BEING REPOSITIONED. HE ALSO MOANED INDICATING PAIN. PRN PAIN MEDICATION GIVEN. WILL CONTINUE TO MONITOR.
[2018-06-15 10:57] LABS: INR 1.07 (0.9-1.15); Partial Thromboplastin Time 35.7 sec (23.78-33.04); Prothrombin Time 11.4 sec (9.27-12.13)
--- NOTE | 2018-06-15 11:13 | NUR ---
PT SET TO GO TO [facility] FOR PEG TUBE PLACEMENT. PT BLOOD SUGAR 63, NO PRN GLUCOSE ORDERED. LEFT MESSAGE FOR DR GRAHAM, AWAITING RESPONSE. CALLED [facility] NOTIFIED THEM PT BS IS LOW. DR LERNER PUT IN ORDER FOR PRN GLUCOSE, WILL GIVE.
[2018-06-15] MEDS ORDERED: DEXTROSE (50%) 50ML SYRG IV ONE (11:30)
--- NOTE | 2018-06-15 11:58 | NUR ---
Nutrition Consult/assessment Notes please see attached link for complete assessment Est. Needs BW [id number] kcal (25-30 kcal/kgBW), 63-81 gms pro (1.0-1.3 gms/kgBW r/t wounds). Will continue to monitor pertinent labs and reassess nutrient needs prn Rec: EN support with Osmolite @ 65 ml/hr per MD approval Addendum: 06/15/18 at [address] Amended: Links added.
--- NOTE | 2018-06-15 12:17 | NUR ---
GAVE PRN DEXTROSE, BS NOW 137. 200 MLS CLOUDY ORANGE URINE DRAINED FROM HILL. USED CHLORHEXIDINE WIPES AND WIPED DOWN PT BODY, FOCUSING ON ABDOMINAL AREA. PT BROUGHT TO PROP VIA BED, NO DISTRESS NOTED.
[2018-06-15] MEDS: MIDAZOLAM HCL 5 MG/ML-1ML VIAL ONE ×2 (12:28→12:31)
[2018-06-15] MEDS: fentaNYL CITRATE 100 MCG/2 ML VL ONE ×2 (12:28→12:31)
--- NOTE | 2018-06-15 12:30 | NUR ---
UNABLE TO GIVE 1200 ZOSYN, PT AT PROCEDURE, CALLED PHARMACY TO RESCHEDULE DOSE, PHARMACY REPORTS TO CALL BACK WHEN PT IS OUT OF PROCEDURE.
--- NOTE | 2018-06-15 12:38 | NUR ---
UNABLE TO GIVE MED NEB TX. AT THIS TIME. PT. AT A PROCEDURE FOR PEG TUBE PLACEMENT, WILL SEE PT. AT NEXT SCHEDULED TIME.
--- NOTE | 2018-06-15 13:00 | NUR ---
PT RETURNED TO FLOOR, VIA BED AND STAFF NO DISTRESS NOTED. TELE MONITOR PUT BACK ON, WOUND PHOTOS TAKEN FOR DISCHARGE, NEW 4X4 GAUZE WITH NS AND OPTIFOAM APPLIED. VITALS :T 98.3, BP 122/80, HR 94, 02 98, RR 21.
[2018-06-15 13:34] VITALS: BP 121/82
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
[2018-06-15 17:46] VITALS: BP 117/78
--- NOTE | 2018-06-15 17:52 | NUR ---
SPOKE WITH DR LAURA MD NOTIFIED [facility] IS WORKING ON A NEW PLACE TO TRANSFER PT. [facility] REPOR[facility] NOT [facility]EPT PT AGAIN. ASKED DR SANCHEZ TO START PT BACK ON OSMOLITE AT 40 MLS PER HR AND THAT PT BLOOD SUGAR WAS LOW EARLIER. REPORTS TO PUT PT ON D5 AT 50 MLS/HR AND START TUBE FEEDING TOMORROW MORNING. WILL CONTINUE TO MONITOR.
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
[2018-06-15] MEDS: D5W 5% 1,000 ML IV SCH (20:00)
[2018-06-15 22:00] VITALS: BP 120/83
[2018-06-15] MEDS: HEPARIN SODIUM (PORCINE) 5000 UNITS/ML 1ML VIAL SC SCH (23:58)
--- NOTE | 2018-06-16 00:30 | NUR ---
RT NOTE PT SLEEPING NO DISTRESS NOTED AT THIS TIME.
[2018-06-16] MEDS: VANCOMYCIN 1,250 MG in D5W 5% 250 ML IV SCH ×2 (02:04→14:33)
[2018-06-16] MEDS: PIPERACILLIN-TAZOB 3.375GM 100 ML IV SCH ×5 (03:48→21:00)
[2018-06-16 05:00] VITALS: BP 123/88
--- NOTE | 2018-06-16 06:02 | NUR ---
osmolite peg tube feeding started at 20ml /hr with goal of 40ml/hr. will continue to monitor.
[2018-06-16] MEDS: IPRATROPIUM BROM 0.5 MG/2.5ML INH SOL NEB SCH ×4 (06:26→17:54)
[2018-06-16] MEDS: ALBUTEROL SULF 2.5 MG/0.5ML(0.5%) NEB SOLN NEB SCH ×4 (06:27→17:54)
[2018-06-16] MEDS: HEPARIN SODIUM (PORCINE) 5000 UNITS/ML 1ML VIAL SC SCH ×3 (06:32→21:31)
[2018-06-16 06:42] LABS: Basophils # (auto) 0 uL; Basophils % (auto) 0.4 % (0.0-2.0); Eosinophils # (auto) 0.1 uL; Eosinophils % (auto) 0.5 % (0.0-7.0); Hematocrit 28.1 % (41.0-53.0); Lymphocytes # (auto) 1.3 uL; Lymphocytes % (auto) 11.2 % (10.0-50.0); Mean Corpuscular Hemoglobin 26.9 pg (28.0-32.0); Mean Corpuscular Hgb Conc. 32.2 g/dL (32.0-36.0); Mean Corpuscular Volume 83.7 fL (80.0-100.0); Monocytes % (auto) 8.1 % (0.0-12.0); Neutrophils # (auto) 9.4 uL; Neutrophils % (auto) 79.8 % (37.0-80.0); Platelet Count (auto) 458 10^3/uL (140-450); Red Blood Cells 3.36 10^6/uL (4.5-5.90); Red Cell Distribution Width 16.1 % (11.8-14.3); White Blood Cell 11.8 10^3/uL (4.4-10.8)
[2018-06-16 06:53] LABS: Potassium 3.9 mmol/L (3.5-5.1)
[2018-06-16 06:59] LABS: BUN/Creatinine Ratio 7.2; Calcium 8.3 mg/dL (8.5-10.1)
--- NOTE | 2018-06-16 08:00 | NUR ---
ASSESSMENT NOTE PT IS ALERT, APHASIC, ABLE TO AGREE OR NOT AGREE ON COMMANDS BY GRIMACING, PT HAS RT TEMPORAL AREA OF HIS SKULL CONCAVE DUE TO BRAIN CARDIOTOMY, PT HAS A LARGE PRESSURE ULCER ON THE SACRAL AREA, DRESSING IS DRY AND CLEAN, HILL CATHETER TO GRAVITY, LEFT HEEL SKIN DISCOLORATION NOTED, PT CONTINUE TO HAVE A THOMPSON FOAM BOOTS ON BOTH LOWER EXTREMITIES, HEAD OF BED ELEVATED FOR BOTH LOWER EXTREMITIES AT ALL TIMES, REPOSITION Q 2 HOURS, CLOSE TO NURSING STATION.
[2018-06-16 08:48] VITALS: BP 119/74
[2018-06-16] MEDS: PANTOPRAZOLE 40 MG/10 ML VIAL IV SCH (11:36)
[2018-06-16] MEDS: AZITHROMYCIN 500MG/ 250ML 250 ML IV SCH (11:36)
[2018-06-16] MEDS: MORPHINE SULF INJ 2 MG/ML SYRINGE 1ML IV PRN (11:37)
[2018-06-16 12:21] VITALS: BP 123/79
[2018-06-16] MEDS: D5W 5% 1,000 ML IV SCH (14:00)
--- NOTE | 2018-06-16 14:00 | NUR ---
WOUND CARE DRESSING CHANGE DONE AT BED SIDE OLD SOILED PACKING REMOVED CLEANSE WITH NS PAT IT TO DRY THERA HONEY APPLIED MOIST CLEAN DRESSING PACKING APPLIED SECURED WITH OPTIFOAM PT TOLERATED WELL WOUND OBSERVATION PT HAS LARGE DEEP WOUND, TO THE BONES, WITH MEME NECROTIC SKIN NOTED INSIDE, WITH BAD FOUL ODOR
--- NOTE | 2018-06-16 14:10 | NUR ---
DR ALLEN AT BED SIDE MADE AWARE OF THE WOUND CONDITION, AND THAT PT IN NEED FOR WOUND DEBRIDEMENT, DR ALLEN INFORM ME THAT PT'S CONDITION NOT ALLOWING HIM.
[2018-06-16] MEDS ORDERED: HEPARIN SODIUM (PORCINE) 5000 UNITS/ML 1ML VIAL ONE (15:23)
[2018-06-16 17:07] VITALS: BP 123/91
--- NOTE | 2018-06-16 17:22 | NUR ---
PT CONTINUE TOLERATING PEG TUBE FEEDING, NO DISTRESS NOTED.
[2018-06-16 18:53] VITALS: BP 123/91
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
[2018-06-16 22:00] VITALS: BP 115/77
[2018-06-17] MEDS: ALBUTEROL SULF 2.5 MG/0.5ML(0.5%) NEB SOLN NEB SCH ×4 (00:27→19:12)
[2018-06-17] MEDS: IPRATROPIUM BROM 0.5 MG/2.5ML INH SOL NEB SCH ×4 (00:27→19:12)
--- NOTE | 2018-06-17 01:30 | NUR ---
Critical Vanco Level: Per lab, vanco level 45.0. Will page application specialist hospitalist and hold 0200 vancomycin per protocol.
[2018-06-17] MEDS: VANCOMYCIN 1,250 MG in D5W 5% 250 ML IV SCH (01:54)
--- NOTE | 2018-06-17 02:00 | NUR ---
Page sent to online marketing manager hospitalist in regards to critical vancomycin of 45.0. No new orders at this time.
[2018-06-17] MEDS: PIPERACILLIN-TAZOB 3.375GM 100 ML IV SCH ×3 (02:54→14:05)
[2018-06-17 05:00] VITALS: BP 117/71
[2018-06-17] MEDS: HEPARIN SODIUM (PORCINE) 5000 UNITS/ML 1ML VIAL SC SCH ×3 (06:00→22:00)
[2018-06-17 06:17] LABS: Basophils # (auto) 0.1 uL; Basophils % (auto) 0.6 % (0.0-2.0); Hematocrit 26.6 % (41.0-53.0); Hemoglobin 8.4 g/dL (13.5-17.5); Lymphocytes # (auto) 1.1 uL; Monocytes # (auto) 1.3 uL; Red Cell Distribution Width 16.1 % (11.8-14.3)
[2018-06-17 06:21] LABS: Eosinophils # (auto) 0 uL; Eosinophils % (auto) 0.3 % (0.0-7.0); Lymphocytes % (auto) 9.1 % (10.0-50.0); Mean Corpuscular Hemoglobin 26.7 pg (28.0-32.0); Mean Corpuscular Hgb Conc. 31.7 g/dL (32.0-36.0); Mean Corpuscular Volume 84.1 fL (80.0-100.0); Monocytes % (auto) 10.2 % (0.0-12.0); Neutrophils # (auto) 9.9 uL; Neutrophils % (auto) 79.8 % (37.0-80.0); Platelet Count (auto) 435 10^3/uL (140-450); Red Blood Cells 3.16 10^6/uL (4.5-5.90); White Blood Cell 12.4 10^3/uL (4.4-10.8)
[2018-06-17 06:33] LABS: Calcium 7.9 mg/dL (8.5-10.1); Potassium 4.3 mmol/L (3.5-5.1)
--- NOTE | 2018-06-17 08:00 | NUR ---
Opening Shift Note Assumed care of patient; patient sleeping. No S/S of distress/SOB or pain. Will continue to monitor for changes Q1hr and PRN.
[2018-06-17 09:06] VITALS: BP 108/69
[2018-06-17] MEDS: PANTOPRAZOLE 40 MG/10 ML VIAL IV SCH (10:37)
[2018-06-17] MEDS: AZITHROMYCIN 500MG/ 250ML 250 ML IV SCH (10:37)
[2018-06-17] MEDS: D5W 5% 1,000 ML IV SCH (10:38)
--- NOTE | 2018-06-17 11:38 | NUR ---
Nutrition Follow-up Notes Wt.: 62.0 kg Pt was sleeping with no family by bedside. per records pt s/p PEG tube and currently NPO on EN support with Osmolite @ 40 ml/hr providing 1152 kcals and 53 gm proteins. pt with fair EN support as it meets 60-73% kcals and 65-84% proteins Est. Needs BW [id number] kcal (25-30 kcal/kgBW), 63-81 gms pro (1.0-1.3 gms/kgBW r/t wounds). Will continue to monitor pertinent labs and reassess nutrient needs prn Labs: CREAT 3.01 H, POC GLU 129 H, CA 7.9 L. Skin: Juan scale 11, high risk, pressure ulcer to sacrum per gantry crane operator. refer to notes for details GI: Pt has no BM reported per gantry crane operator. PES: Altered nutrition related lab values r/t current/chronic medical condition aeb hypocalcemia Increased nutrient needs r/t current chronic medical condition aeb pt`s NPO, PEG tube with multiple pressure wounds Will continue to monitor NPO status, EN tolerance, skin status, pertinent labs and weight trend. F/u in 2-3 days. Rec.: 1.) advance EN feeds with Osmolite @ 65 ml/hr per MD approval. 2) consider MVI/C bid. 3) advance diet as medically feasible. 4) continue current plan of care
[2018-06-17] MEDS ORDERED: Jevity 1.2 Cal/Fiber 1 Liter GT SCH (12:45)
[2018-06-17 13:36] VITALS: BP 100/71
--- NOTE | 2018-06-17 14:00 | NUR ---
HEPARIN UNKNOWN IF 0600 DOSE WAS GIVEN BY TITLE DEPARTMENT MANAGER. MARKED ALREADY GIVEN. 1400 DOSE WAS GIVEN BY THIS NURSE.
[2018-06-17 16:55] VITALS: BP 104/68
--- NOTE | 2018-06-17 20:00 | NUR ---
A&OX2, RESTING IN BED. CURRENTLY ON 2LNC, GENERALIZED PAIN. BED LOCKED IN LOWEST POSITION, SIDE RAILS UP X2, CALL LIGHT WITHIN REACH, BED ALARM ON FOR PATIENT SAFETY. PATIENT HAS AN OPEN WOUND ON HIS SACRAL AREA, STAGE 3 AND DRESSING WAS CHANGED. CONTINUE TO ROUND.
[2018-06-17 22:00] VITALS: BP 118/71
[2018-06-18] MEDS: IPRATROPIUM BROM 0.5 MG/2.5ML INH SOL NEB SCH ×4 (00:53→19:02)
[2018-06-18] MEDS: ALBUTEROL SULF 2.5 MG/0.5ML(0.5%) NEB SOLN NEB SCH ×4 (00:54→19:02)
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
[2018-06-18] MEDS: PIPERACILLIN-TAZOB 3.375GM 100 ML IV SCH ×2 (03:00→09:31)
[2018-06-18 05:00] VITALS: BP 111/72
[2018-06-18] MEDS: D5W 5% 1,000 ML IV SCH (07:06)
[2018-06-18] MEDS: HEPARIN SODIUM (PORCINE) 5000 UNITS/ML 1ML VIAL SC SCH ×3 (07:08→22:47)
[2018-06-18 07:34] VITALS: BP 127/71
[2018-06-18 07:59] LABS: Basophils # (auto) 0 uL; Eosinophils # (auto) 0.1 uL; Hemoglobin 7.6 g/dL (13.5-17.5); Monocytes # (auto) 1.1 uL; Red Blood Cells 2.86 10^6/uL (4.5-5.90); White Blood Cell 11.4 10^3/uL (4.4-10.8)
--- NOTE | 2018-06-18 08:00 | NUR ---
RECEIVED PT RESTING IN BED, CALL LIGHT WITHIN REACH, HOB AT 45 DEGREE ANGLE, PEG TUBE TO LT ABDOMEN RUNNING OSMOLITE FEEDING AT 40 ML/HR, NO RESIDUAL OBTAIN, PLACEMENT CHECKED, HILL DRAINING TO GRAVITY, SACRAL DRESSING CLEAN AND DRY, WILL CONTINUE TO MONITOR PT.
[2018-06-18 08:02] LABS: Basophils % (auto) 0.3 % (0.0-2.0); Eosinophils % (auto) 1.1 % (0.0-7.0); Hematocrit 23.8 % (41.0-53.0); Lymphocytes # (auto) 1.5 uL; Lymphocytes % (auto) 13.4 % (10.0-50.0); Mean Corpuscular Hemoglobin 26.5 pg (28.0-32.0); Mean Corpuscular Hgb Conc. 31.9 g/dL (32.0-36.0); Mean Corpuscular Volume 82.9 fL (80.0-100.0); Neutrophils # (auto) 8.6 uL; Neutrophils % (auto) 75.2 % (37.0-80.0); Platelet Count (auto) 430 10^3/uL (140-450); Red Cell Distribution Width 16.1 % (11.8-14.3)
[2018-06-18 08:13] LABS: Calcium 7.9 mg/dL (8.5-10.1); Potassium 4.1 mmol/L (3.5-5.1)
[2018-06-18 08:16] LABS: BUN/Creatinine Ratio 5.6
[2018-06-18] MEDS: AZITHROMYCIN 500MG/ 250ML 250 ML IV SCH (09:31)
[2018-06-18] MEDS: PANTOPRAZOLE 40 MG/10 ML VIAL IV SCH (09:31)
--- NOTE | 2018-06-18 10:30 | NUR ---
DRESSING CHANGE REMOVED OLD DRESSING, CLEANED WOUND WITH WOUND CLEANSER, PAD DRY WITH STERILE GAUZE, APPLIED THERA HONEY TO WOUND BED, MOIST CLEAN DRESSING PACKING APPLIED,SECURED WITH OPTIFOAM, PT TOLERATED WELL.
[2018-06-18] MEDS: LINEZOLID 600MG/300ML 300 ML IV SCH ×2 (11:25→22:44)
[2018-06-18 11:42] VITALS: BP 105/75
[2018-06-18 12:22] LABS: Urine Bacteria FEW /hpf (None Seen); Urine Blood TRACE /uL (Negative); Urine WBC 9 /hpf (0 - 3)
[2018-06-18 12:23] LABS: Creatinine, Urine 56 mg/dL (30.0-125.0); Sodium Urine 39 mmol/L (40-220)
[2018-06-18] MEDS: MEROPENEM 500MG IVPB 50 ML IV SCH (13:32)
[2018-06-18 16:36] VITALS: BP 137/83
--- NOTE | 2018-06-18 20:00 | NUR ---
Page sent to international account executive hospitalist in regards to urinary retention. Per report, caban catheter was removed at about 1300 and patient has not urinated. Bladder scan was for 643 ml with slight abdominal distention. No pain or discomfort at this time. Will await page return for possible new orders. Addendum: 06/19/18 at 0034 by FELIBERTO COLEY RN wrong patient
--- NOTE | 2018-06-18 20:30 | NUR ---
Opening Shift Note: A&Ox4, resting in bed but aphasic and unable to clearly communicate. Currently on 2LO2 via NC; wears at home but patient unable to state how many liters; pain with movement; and bedrest at baseline: Bed locked in lowest position, side rails up x3, call light within reach, and on specialty mattress to preserve skin integrity. IV 22 g in left forearm running D5W at 50 ml/hr inserted on 06/13/18. Skin: stage 4 pressure ulcer to sacrum; deep tissue injury to left heel; dressing changes per MD order. S/P EGD with PEG tube replacement by Dr. Spence on 06/15/18. PEG Osmolite 1.2 at 40 ml/hr. Conn inserted on 06/13/18 for strict I/O. Bailey boots and scds on bilateral lower extremities. POC discussed with patient but unable to retain information. Will continue to round and reposition prn.
[2018-06-18 22:00] VITALS: BP 110/82
[2018-06-18] MEDS: MORPHINE SULF INJ 2 MG/ML SYRINGE 1ML IV PRN (23:17)
--- NOTE | 2018-06-18 23:45 | NUR ---
New IV: IV 22 g in left forearm infiltrated and painful for the patient. IV removed. New IV 22 g in right upper arm/AC inserted x2 attempts. D5W restarted at 50 ml/hr.
[2018-06-19] MEDS: D5W 5% 1,000 ML IV SCH (02:10)
[2018-06-19] MEDS: MEROPENEM 500MG IVPB 50 ML IV SCH ×2 (02:10→13:09)
[2018-06-19 05:00] VITALS: BP 128/90
[2018-06-19] MEDS: ALBUTEROL SULF 2.5 MG/0.5ML(0.5%) NEB SOLN NEB SCH ×4 (05:52→18:31)
[2018-06-19] MEDS: IPRATROPIUM BROM 0.5 MG/2.5ML INH SOL NEB SCH ×4 (05:52→18:31)
[2018-06-19] MEDS: HEPARIN SODIUM (PORCINE) 5000 UNITS/ML 1ML VIAL SC SCH ×3 (06:21→21:36)
--- NOTE | 2018-06-19 08:00 | NUR ---
RECEIVED PT RESTING IN BED, CALL LIGHT WITHIN REACH, PT TURNED AND REPOSITION, PEG TUBE TO LT ABDOMEN RUNNING OSMOLITE 1.2 ELVIRA AT 40 ML / HR, HILL DRAINING TO GRAVITY, WILL CONTINUE TO MONITOR PT.
[2018-06-19 08:56] VITALS: BP 126/82
[2018-06-19] MEDS: LINEZOLID 600MG/300ML 300 ML IV SCH ×2 (09:38→21:34)
[2018-06-19] MEDS: PANTOPRAZOLE 40 MG/10 ML VIAL IV SCH (09:38)
[2018-06-19 11:21] LABS: Basophils # (auto) 0 uL; Lymphocytes # (auto) 1.4 uL; Mean Corpuscular Hgb Conc. 32.3 g/dL (32.0-36.0); Monocytes # (auto) 0.7 uL
[2018-06-19 11:24] LABS: Basophils % (auto) 0.3 % (0.0-2.0); Eosinophils # (auto) 0.2 uL; Eosinophils % (auto) 2.9 % (0.0-7.0); Hematocrit 24.2 % (41.0-53.0); Hemoglobin 7.8 g/dL (13.5-17.5); Lymphocytes % (auto) 16.4 % (10.0-50.0); Mean Corpuscular Volume 83.7 fL (80.0-100.0); Monocytes % (auto) 7.9 % (0.0-12.0); Neutrophils % (auto) 72.5 % (37.0-80.0); Platelet Count (auto) 458 10^3/uL (140-450); Red Blood Cells 2.89 10^6/uL (4.5-5.90); Red Cell Distribution Width 15.9 % (11.8-14.3); White Blood Cell 8.3 10^3/uL (4.4-10.8)
--- NOTE | 2018-06-19 11:30 | NUR ---
DR. SANCHEZ AT UNIT, DOCTOR SIGNED CONSENT FOR DEBRIDEMENT OF SACRAL WOUND CO-SIGNED BY DR. Umm ALLEN,DOCTOR INFORMED ABOUT PT HAVING RT HIP SWELLING,
[2018-06-19 12:39] LABS: BUN/Creatinine Ratio 6.2; Calcium 8.3 mg/dL (8.5-10.1); Potassium 4.3 mmol/L (3.5-5.1)
[2018-06-19 13:00] VITALS: BP 135/89
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
[2018-06-19 17:00] VITALS: BP 126/83
--- NOTE | 2018-06-19 19:40 | NUR ---
Opening Shift Note Assumed care of patient, awake and eyes open. Does not fixate/accomodate to watch people or activity in room. No S/S of distress/SOB or pain. Insructed on POC. This RN will continue to monitor for changes PRN. Bed in low position. Call light beside pt in bed.
[2018-06-19] MEDS: MORPHINE SULF INJ 2 MG/ML SYRINGE 1ML IV PRN (21:45)
[2018-06-19 21:51] VITALS: BP 135/91
[2018-06-19] MEDS: SODIUM CHLORIDE 0.9% 1,000 ML IV SCH (22:00)
[2018-06-19 22:42] VITALS: BP 135/91
--- NOTE | 2018-06-20 04:10 | NUR ---
Dressing change to sacral wound. Blackened slough sporadically attached to wound borders in place. Wound cleansed with wound cleanser then patted dry. NS dampened gauze placed in wound and entire wound covered with optifoam. Pt krystal well. After wound care done and pt positioned supine, pt repeatedly putting R hand behind his buttock attempting to take hold of it. Repeatedly told he cannot do this in order for it to cont. in place. Warned that if he cont to pull on dressing, he will have to wear mitts. PT stopped.
[2018-06-20 05:37] VITALS: BP 125/73
[2018-06-20] MEDS: IPRATROPIUM BROM 0.5 MG/2.5ML INH SOL NEB SCH ×3 (06:50→18:36)
[2018-06-20] MEDS: ALBUTEROL SULF 2.5 MG/0.5ML(0.5%) NEB SOLN NEB SCH ×3 (06:50→18:36)
[2018-06-20] MEDS: HEPARIN SODIUM (PORCINE) 5000 UNITS/ML 1ML VIAL SC SCH ×3 (07:57→23:00)
--- NOTE | 2018-06-20 08:00 | NUR ---
RECEIVED PT RESTING IN BED, CALL LIGHT WITHIN REACH, PT TURNED AND REPOSITION, HILL DRAINING TO GRAVITY, WILL CONTINUE TO MONITOR PT.
[2018-06-20 09:00] VITALS: BP 132/96
--- NOTE | 2018-06-20 10:30 | NUR ---
DR. LI / NEPHRO AT BED SIDE TO SEE PT.
[2018-06-20 10:45] LABS: BUN/Creatinine Ratio 6.1; Calcium 8.3 mg/dL (8.5-10.1); Potassium 4.2 mmol/L (3.5-5.1)
[2018-06-20] MEDS: SODIUM CHLORIDE 0.9% 1,000 ML IV SCH (10:46)
[2018-06-20] MEDS: BUMETANIDE (0.25 MG/ML) INJ 10ML IV SCH (10:47)
[2018-06-20] MEDS: PANTOPRAZOLE 40 MG/10 ML VIAL IV SCH (10:48)
[2018-06-20] MEDS: LINEZOLID 600MG/300ML 300 ML IV SCH ×2 (10:48→23:22)
[2018-06-20 10:59] LABS: INR 1.07 (0.9-1.15); Partial Thromboplastin Time 34.4 sec (23.78-33.04); Prothrombin Time 11.4 sec (9.27-12.13)
--- NOTE | 2018-06-20 11:00 | NUR ---
DR. SANCHEZ AT BED SIDE TO SEE PT.
[2018-06-20 12:23] LABS: Basophils # (auto) 0 uL; Basophils % (auto) 0.7 % (0.0-2.0); Eosinophils # (auto) 0.2 uL; Eosinophils % (auto) 3.4 % (0.0-7.0); Hematocrit 26.1 % (41.0-53.0); Hemoglobin 8.5 g/dL (13.5-17.5); Lymphocytes # (auto) 1.5 uL; Lymphocytes % (auto) 22.1 % (10.0-50.0); Mean Corpuscular Hgb Conc. 32.6 g/dL (32.0-36.0); Monocytes # (auto) 0.5 uL; Monocytes % (auto) 7.2 % (0.0-12.0); Neutrophils # (auto) 4.5 uL; Neutrophils % (auto) 66.6 % (37.0-80.0); Nucleated Red Blood Cells % 0.1 %; Platelet Count (auto) 444 10^3/uL (140-450); Red Blood Cells 3.14 10^6/uL (4.5-5.90); Red Cell Distribution Width 16.1 % (11.8-14.3); White Blood Cell 6.7 10^3/uL (4.4-10.8)
[2018-06-20] MEDS: MEROPENEM 500MG IVPB 50 ML IV SCH ×2 (12:42)
[2018-06-20 12:43] LABS: Calcium 8.3 mg/dL (8.5-10.1); Potassium 4.2 mmol/L (3.5-5.1)
[2018-06-20 13:00] VITALS: BP 119/76
--- NOTE | 2018-06-20 13:15 | NUR ---
PT TAKEN TO [facility].
[2018-06-20] MEDS ORDERED: ceFAZolin 1GM/50ML 50 ML IV ONE (13:18)
[2018-06-20] MEDS ORDERED: ROCURONIUM 10MG/ML 10ML VIAL IV ONE (13:24)
[2018-06-20] MEDS ORDERED: SUCCINYLCHOLINE CHLORIDE 20 MG/ML 10ML VIAL IV ONE (13:24)
[2018-06-20] MEDS ORDERED: fentaNYL CITRATE 100 MCG/2 ML VL ONE (14:57)
[2018-06-20] MEDS ORDERED: ONDANSETRON HCL 4 MG/2 ML VIAL IV ONE (15:45)
[2018-06-20] MEDS ORDERED: MORPHINE SULF INJ 2 MG/ML SYRINGE 1ML ONE (15:49)
[2018-06-20] MEDS: MORPHINE SULF INJ 2 MG/ML SYRINGE 1ML IV PRN ×2 (15:50→16:05)
[2018-06-20 17:41] VITALS: BP 131/89
--- NOTE | 2018-06-20 19:30 | NUR ---
Opening Shift Note Assumed care of patient, sleeping with no S/S of distress/SOB or pain. Feeding of Nepro with carbsteady started via PEG after placment checked. No ac residual obtained. Pt awakened during assessment, but no attempt at speech. Little active movement. Sl grinding of teeth noted. Instructed on POC and call light placed across torso with instruction how to call nurse. Pt able to move R arm and grasp objects. RN will continue to monitor for changes PRN. Bed in low position with HOB in semi-Fowlers. HOB elev more since feeding begun. Urine in F/C to BSD yellow, almost clear.
[2018-06-20 21:46] VITALS: BP 142/96
--- NOTE | 2018-06-21 00:19 | NUR ---
PT IS SLEEPING, NO SOB NOTED.
[2018-06-21] MEDS: MEROPENEM 500MG IVPB 50 ML IV SCH ×2 (01:00→12:10)
[2018-06-21 05:45] VITALS: BP 121/81
[2018-06-21] MEDS: HEPARIN SODIUM (PORCINE) 5000 UNITS/ML 1ML VIAL SC SCH ×3 (06:15→22:02)
[2018-06-21] MEDS: ALBUTEROL SULF 2.5 MG/0.5ML(0.5%) NEB SOLN NEB SCH ×3 (06:40→18:59)
[2018-06-21] MEDS: IPRATROPIUM BROM 0.5 MG/2.5ML INH SOL NEB SCH ×3 (06:40→19:00)
[2018-06-21 08:00] VITALS: BP 109/72
[2018-06-21 08:34] LABS: Albumin 1.6 g/dL (3.4-5.0); BUN/Creatinine Ratio 6.5; Calcium 8.1 mg/dL (8.5-10.1); Potassium 4.6 mmol/L (3.5-5.1)
[2018-06-21 08:37] LABS: Bilirubin, Total 0.3 mg/dL (0.2-1.0); Total Protein 5.8 g/dL (6.4-8.2)
[2018-06-21] MEDS: LINEZOLID 600MG/300ML 300 ML IV SCH ×2 (10:12→22:03)
[2018-06-21] MEDS: BUMETANIDE (0.25 MG/ML) INJ 10ML IV SCH (10:13)
[2018-06-21] MEDS: PANTOPRAZOLE 40 MG/10 ML VIAL IV SCH (10:15)
[2018-06-21] MEDS: MORPHINE SULF INJ 2 MG/ML SYRINGE 1ML IV PRN (10:59)
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
--- NOTE | 2018-06-21 12:08 | NUR ---
Nutrition Follow-up Notes Wt.: 62.0 kg Pt's on oxygen via nasal cannula, asleep in isolation room, no immediate family member at bedside during rounds this morning. Pt's no signs of distress noted earlier, currently NPO with EN support of Nephro carb steady @ 30 ml/hr via PEG tube providing 1296 kcals and 58 gm proteins, tolerates feeding well, no residuals noted, per nursing. Pt's with fair EN support d/t mod initiation rate delivery of concentrated formula aeb current EN infusion meets 68% to 82% caloric needs, however meets 84% to 106% protein needs. Est. Needs BW [id number] kcal (25-30 kcal/kgBW), 50- 63 gms pro (0.8-1.0 gms/kgBW reassessed r/t elev. renal labs, wounds). Will continue to monitor pertinent labs and reassess nutrient needs prn Labs: BUN 34 H, CREAT 5.25 H, CA 8.1 L, ALB 1.6 L. Skin: Juan scale 11 high risk, pressure ulcer to let upper sacrum per gps navigation installer. Pls refer to floor winder's notes for details GI: Pt 's no bowel activity since 06/13/18 per gps navigation installer. PES: Altered nutrition related lab values r/t current/chronic medical condition aeb hypocalcemia Increased nutrient needs r/t current chronic medical condition aeb pt`s NPO, PEG tube with multiple pressure wounds Will continue to monitor NPO status, EN tolerance, skin status, pertinent labs and weight trend. F/u in 2 to 3 days. Rec.: 1.) If pt's not on dialysis with renal labs remains elev., continue Osmolite @ 45 ml/hr goal rate as tolerated instead of nephro Carb steady. 3.) Consider daily Neprhovite and Asc acid 500 mgs BID. 4.) Refer pt's family to CDE/RD for further nutrition education and weight monitoring upon discharged. 5.) Continue current plan of care.
[2018-06-21 12:58] VITALS: BP 143/76
[2018-06-21 13:04] VITALS: BP 138/89
[2018-06-21] MEDS ORDERED: ERGOCALCIFEROL 50,000 UNIT(1.25MG) CAP PO SCH (14:30)
--- NOTE | 2018-06-21 16:18 | NUR ---
PAGED DR. LI TO CLARIFY VIT D ORDER, PT IS NPO AND UNABLE TO SWALLOW CAPSULE, PER PHARMACY WE CANNOT CRUSH VIT D CAPSULE AND NO ALTERNATIVE. Addendum: 06/21/18 at 1844 by Pretty Steinberg RN DR. LI ORDERED TO CANCEL THE ORDER
[2018-06-21] MEDS: SODIUM CHLORIDE 0.9% 1,000 ML IV SCH ×2 (16:23→16:24)
[2018-06-21 16:34] VITALS: BP 130/94
--- NOTE | 2018-06-21 19:40 | NUR ---
OPENING SHIFT NOTE RECEIVED REPORT FROM VALENTIN RN. PATIENT RESTING COMFORTABLY IN BED WITH EYES CLOSED. PATIENT APHASIC. NO S/S OF DISTRESS OR SOB. NO PAIN NOTED OR REPORTED AT THIS TIME. PATIENT HAS PEG TUBE RUNNING NEPRO AT 30 MLS, TOLERATING WELL. BED LOCKED IN LOW POSITION, CALL LIGHT WITHIN REACH, BED ALARM ON FOR SAFETY. WILL CONTINUE TO MONITOR PATIENT Q1HR AND PRN.
[2018-06-21 22:00] VITALS: BP 125/81
[2018-06-21] MEDS: CALCIUM ACETATE 667 MG CAP GT SCH (22:03)
[2018-06-22] MEDS: MEROPENEM 500MG IVPB 50 ML IV SCH ×2 (00:35→12:17)
[2018-06-22 05:12] VITALS: BP 120/75
[2018-06-22] MEDS: CALCIUM ACETATE 667 MG CAP GT SCH ×3 (06:04→22:41)
[2018-06-22] MEDS: HEPARIN SODIUM (PORCINE) 5000 UNITS/ML 1ML VIAL SC SCH ×3 (06:05→22:44)
[2018-06-22] MEDS: ALBUTEROL SULF 2.5 MG/0.5ML(0.5%) NEB SOLN NEB SCH ×3 (06:40→19:06)
[2018-06-22] MEDS: IPRATROPIUM BROM 0.5 MG/2.5ML INH SOL NEB SCH ×3 (06:40→19:06)
[2018-06-22 09:00] VITALS: BP 122/84
[2018-06-22 09:56] LABS: Basophils # (auto) 0 uL; Basophils % (auto) 0.5 % (0.0-2.0); Eosinophils # (auto) 0.2 uL; Hematocrit 23.5 % (41.0-53.0); Hemoglobin 7.7 g/dL (13.5-17.5); Lymphocytes # (auto) 1.9 uL; Lymphocytes % (auto) 24.6 % (10.0-50.0); Mean Corpuscular Hemoglobin 27.1 pg (28.0-32.0); Mean Corpuscular Hgb Conc. 32.7 g/dL (32.0-36.0); Mean Corpuscular Volume 82.7 fL (80.0-100.0); Monocytes # (auto) 0.5 uL; Monocytes % (auto) 7.1 % (0.0-12.0); Neutrophils % (auto) 65.8 % (37.0-80.0); Platelet Count (auto) 410 10^3/uL (140-450); Red Blood Cells 2.84 10^6/uL (4.5-5.90); White Blood Cell 7.6 10^3/uL (4.4-10.8)
[2018-06-22] MEDS: LINEZOLID 600MG/300ML 300 ML IV SCH ×2 (10:03→22:40)
[2018-06-22] MEDS: BUMETANIDE (0.25 MG/ML) INJ 10ML IV SCH (10:03)
[2018-06-22] MEDS: PANTOPRAZOLE 40 MG/10 ML VIAL IV SCH (10:04)
[2018-06-22 10:09] LABS: Albumin 1.6 g/dL (3.4-5.0); BUN/Creatinine Ratio 6.7; Calcium 8.1 mg/dL (8.5-10.1); Potassium 4.1 mmol/L (3.5-5.1)
[2018-06-22 10:12] LABS: Bilirubin, Total 0.2 mg/dL (0.2-1.0); Total Protein 6.1 g/dL (6.4-8.2)
[2018-06-22] MEDS: MORPHINE SULF INJ 2 MG/ML SYRINGE 1ML IV PRN ×2 (12:17→18:30)
--- NOTE | 2018-06-22 12:35 | NUR ---
PT HAD A BM, PT CLEANED WITH SOAP AND WATER, SACRAL ULCER CLEANSED WITH WOUND CLEANSER, PAT DRY, THERAHONEY GAUZE APPLIED PACKED WITH GAUZE MOIST WITH SALINE AND OPTIFOAM APPLIED
[2018-06-22 13:00] VITALS: BP 138/91
--- NOTE | 2018-06-22 16:11 | NUR ---
Followup on executive secretary social welfare consult for placement with hospice. Contacted by APS worker, [facility], regarding placement. Discussed limited placement options for pt due to limited income of $900 for assisted living and although pt has [facility] no senior care beds in the area. Per [facility] pt could n ot go to a room and board residence because the owners would not be legal caregivers. Contacted licensed board and care facility in [place] and pt accepted for admission with amount of money he has. Pt's mother contacted and she verbalized agreeance with discharge plan established that would be best for her son. Will followup with MD and facility contracted hospice agency.
[2018-06-22 17:00] VITALS: BP 128/90
[2018-06-22 19:10] VITALS: BP 128/90
[2018-06-22 21:52] VITALS: BP 145/92
[2018-06-22] MEDS: metroNIDAZOLE 500 MG TAB PO SCH (22:41)
[2018-06-23] MEDS: MEROPENEM 500MG IVPB 50 ML IV SCH ×2 (00:46→11:34)
[2018-06-23 05:31] VITALS: BP 133/88
[2018-06-23] MEDS: CALCIUM ACETATE 667 MG CAP GT SCH ×3 (05:56→21:46)
[2018-06-23] MEDS: metroNIDAZOLE 500 MG TAB PO SCH ×3 (05:56→21:46)
[2018-06-23] MEDS: HEPARIN SODIUM (PORCINE) 5000 UNITS/ML 1ML VIAL SC SCH ×3 (05:59→21:48)
[2018-06-23] MEDS: IPRATROPIUM BROM 0.5 MG/2.5ML INH SOL NEB SCH ×3 (06:31→18:50)
[2018-06-23] MEDS: ALBUTEROL SULF 2.5 MG/0.5ML(0.5%) NEB SOLN NEB SCH ×3 (06:31→18:50)
[2018-06-23 06:35] LABS: BUN/Creatinine Ratio 7.2; Calcium 8.4 mg/dL (8.5-10.1)
--- NOTE | 2018-06-23 07:16 | NUR ---
shift note The patient had an uneventful night, tolerated treatments well, had no signs of complaints or pain. The patient had 2-3 BMs last night, not quite diarrhea, change the sacral wound per doctor's orders due to being soiled with stool. The patient was his normal self, withdrawing from pain and moaning when turned but otherwise tolerated treatments well.
--- NOTE | 2018-06-23 07:30 | NUR ---
Opening shift note Assumed care of pt asleep on bed, resting comfortably, with peg tube and caban catheter in place, will continue to monitor.
[2018-06-23 09:00] VITALS: BP 133/91
[2018-06-23] MEDS: PANTOPRAZOLE 40 MG/10 ML VIAL IV SCH (09:14)
[2018-06-23] MEDS: BUMETANIDE (0.25 MG/ML) INJ 10ML IV SCH (09:14)
[2018-06-23] MEDS: LINEZOLID 600MG/300ML 300 ML IV SCH ×2 (09:15→21:46)
[2018-06-23] MEDS: MORPHINE SULF INJ 2 MG/ML SYRINGE 1ML IV PRN (11:48)
[2018-06-23 13:00] VITALS: BP 147/98
--- NOTE | 2018-06-23 13:20 | NUR ---
PT HAD BM, SOFT, BROWN IN MODERATE AMOUNT. PT CLEANED WITH SOAP AND WATER, SACRAL DRESSING REMOVED, WOUND CLEANSED WITH WOUND CLEANSER, THERAHONEY GAUZE AND MOIST GAUZE APPLIED AND COVERED WITH OPTIFOAM.
--- NOTE | 2018-06-23 14:52 | NUR ---
DR. SANCHEZ MADE AWARE THAT MOJGAN FROM [facility] IS AT BEDSIDE WITH PAPERS THAT NEEDS TO BE SIGNED,PER DR. SANCHEZ HE WILL CALL MOJGAN, PHONE NUMBER GIVEN TO DR. SANCHEZ.
--- NOTE | 2018-06-23 15:35 | NUR ---
MOJGAN HANDED THE HOSPICE PAPERS FOR DR. SANCHEZ TO SIGN, FORMS ATTACHED TO CHART.
[2018-06-23 17:00] VITALS: BP 134/88
[2018-06-23] MEDS: Nepro With Carb Steady 1 Liter Bottle GT SCH (18:03)
[2018-06-23 22:00] VITALS: BP 134/89
[2018-06-24] MEDS: MEROPENEM 500MG IVPB 50 ML IV SCH ×2 (00:07→11:45)
[2018-06-24 05:00] VITALS: BP 139/94
[2018-06-24] MEDS: metroNIDAZOLE 500 MG TAB PO SCH ×3 (05:54→22:41)
[2018-06-24] MEDS: CALCIUM ACETATE 667 MG CAP GT SCH ×3 (05:54→22:40)
[2018-06-24] MEDS: HEPARIN SODIUM (PORCINE) 5000 UNITS/ML 1ML VIAL SC SCH ×3 (05:55→22:43)
[2018-06-24] MEDS: ALBUTEROL SULF 2.5 MG/0.5ML(0.5%) NEB SOLN NEB SCH ×3 (05:57→19:12)
[2018-06-24] MEDS: IPRATROPIUM BROM 0.5 MG/2.5ML INH SOL NEB SCH ×3 (05:57→19:12)
[2018-06-24 06:01] LABS: Basophils # (auto) 0 uL; Basophils % (auto) 0.6 % (0.0-2.0); Eosinophils # (auto) 0.1 uL; Eosinophils % (auto) 1.7 % (0.0-7.0); Hematocrit 26.2 % (41.0-53.0); Hemoglobin 8.5 g/dL (13.5-17.5); Lymphocytes % (auto) 31.3 % (10.0-50.0); Mean Corpuscular Hgb Conc. 32.5 g/dL (32.0-36.0); Mean Corpuscular Volume 83.1 fL (80.0-100.0); Monocytes # (auto) 0.5 uL; Monocytes % (auto) 8.3 % (0.0-12.0); Neutrophils # (auto) 3.7 uL; Neutrophils % (auto) 58.1 % (37.0-80.0); Platelet Count (auto) 406 10^3/uL (140-450); Red Blood Cells 3.15 10^6/uL (4.5-5.90); Red Cell Distribution Width 16.1 % (11.8-14.3); White Blood Cell 6.4 10^3/uL (4.4-10.8)
[2018-06-24 06:39] LABS: BUN/Creatinine Ratio 7.6; Calcium 8.7 mg/dL (8.5-10.1)
--- NOTE | 2018-06-24 07:30 | NUR ---
Opening Shift Note Assumed care of patient, awake and alert, lying on bed. No S/S of distress/SOB or pain. will continue to monitor for changes Q1hr and PRN.
[2018-06-24 09:00] VITALS: BP 143/90
[2018-06-24] MEDS: LINEZOLID 600MG/300ML 300 ML IV SCH ×2 (09:16→22:40)
[2018-06-24] MEDS: PANTOPRAZOLE 40 MG/10 ML VIAL IV SCH (09:17)
[2018-06-24] MEDS: BUMETANIDE (0.25 MG/ML) INJ 10ML IV SCH (09:17)
--- NOTE | 2018-06-24 10:22 | NUR ---
PT SEEN BY DR. SANCHEZ HE CALLED MOJGAN AT [facility]# [phone] BUT NO ANSWER, VOICE MAIL IS FULL AND UNABLE TO LEAVE A MESSAGE. DR. SANCHEZ CALLED THE MOTHER AT [facility]# [phone] BUT NO ANSWER. PER DR. SANHCEZ HE WILL ONLY SIGN THE PAPERS AFTER HE TALK TO THE MOTHER.
--- NOTE | 2018-06-24 10:30 | NUR ---
CALLED [facility] 3 TIMES BUT NO ANSWER, VOICE MAIL FULL UNABLE TO LEAVE A MESSAGE.
[2018-06-24 13:00] VITALS: BP 144/84
--- NOTE | 2018-06-24 13:07 | NUR ---
Nutrition Follow-up Notes Wt.: 62.0 kg as of yesterday. Pt's asleep in isolation room, no immediate family member at bedside when rounded this morning. Pt's no signs of distress noted earlier, currently NPO with EN support of Nephro Carb steady @ 30 ml/hr via PEG tube providing 1296 kcal and 58 gm proteins, tolerates feeding well, no residuals noted, per nursing. Pt's with fair EN support d/t mod initiation rate delivery of concentrated formula aeb current EN infusion meets 68% to 82% caloric needs, however meets 84% to 106% protein needs. Followed up with RN re: RD's recommendation,per MD's approval. Est. Needs BW [id number] kcal (25-30 kcal/kgBW), 50- 63 gms pro (0.8-1.0 gms/kgBW reassessed r/t elev. renal labs, wounds). Will continue to monitor pertinent labs and reassess nutrient needs prn Labs: BUN 112 H, Cr 5.42 H; Tpro 6.1 L, Alb 1.6 L. Skin: Juan scale 11 high risk, pressure ulcer to let upper sacrum per preschool associate teacher. Pls refer to route rider's notes (06/21/18) for details GI: Pt had 1 BM this morning per preschool associate teacher. PES: Altered nutrition related lab values r/t current/chronic medical condition aeb hypocalcemia Increased nutrient needs r/t current chronic medical condition aeb pt`s NPO, PEG tube with multiple pressure wounds Will continue to monitor NPO status, EN tolerance, skin status, pertinent labs and weight trend. F/u in 2 to 3 days. Rec.: 1.) If pt's renal labs continue trending up, not on dialysis, consider change EN formula to Osmolite 1.2 Charles @ 50 ml/hr goal rate as tolerated instead of Nephro Carb steady, per MD's approval. 2.) Consider daily Nephrovite and Asc acid 500 mgs BID. 3.) If Albumin level continues trending down with improved renal labs/on HD, consider Prostat 1 pkt BID. 4.) Refer pt's family to CDE/RD for further nutrition education and weight monitoring upon discharged. 5.) Continue current plan of care.
--- NOTE | 2018-06-24 13:26 | NUR ---
MICROBIOLOGY DR. SANCHEZ NOTIFIED PT IS POSITIVE FOR VRE SACRUM CULTURE.
--- NOTE | 2018-06-24 14:09 | NUR ---
SPOKE WITH DR. SANCHEZ, HE SAID PT IS ALREADY ON ZYVOX IT IS OKAY.
[2018-06-24 17:22] VITALS: BP 123/71
[2018-06-24 17:26] VITALS: BP 146/87
--- NOTE | 2018-06-24 19:20 | NUR ---
RECEIVED PATIENT FROM DAY SHIFT RN. PATIENT RESTING IN BED. NO S/S OF DISTRESS AND PAIN NOTED. DRESSING ON WOUND AREAS C/D/I. REPOSITIONED PATIENT. PATENT TOLERATED WELL. THOMPSON BOOTS IN PLACE. HILL CATH IN PLACE DRAINING GRAVITY. REORIENTED PATIENT, PATIENT NO VERBAL RESPONSE. INSTRUCTED ON POC WITH NO RESPONSE. BED IN LOWEST POSITION WITH SIDE RAILS UP X 2. CALL CHEEMA WITHIN REACH. ALARM ON. CONTINUE TO MONITOR FOR CHANGES Q1H AND PRN.
--- NOTE | 2018-06-24 21:03 | NUR ---
REPOSITIONED PATIENT. PATIENT TOLERATED WELL. SCD ON. DRESSINGS C/D/I. CONTINUE TO MONITOR.
[2018-06-24 22:00] VITALS: BP 139/86
--- NOTE | 2018-06-24 23:01 | NUR ---
SCHEDULED MEDICATIONS GIVEN VIA PEG TUBE. PATIENT TOLERATED WELL. NO RESIDUAL AT THIS TIME. REPOSITIONED PATIENT. PATIENT TOLERATED WELL. CONTINUE TO MONITOR.
--- NOTE | 2018-06-25 00:10 | NUR ---
RESIDUAL CHECKED, 10ML. FREE WATER GIVEN. PATIENT TOLERATED WELL. CONTINUE TO MONITOR.
[2018-06-25] MEDS: MEROPENEM 500MG IVPB 50 ML IV SCH ×2 (00:40→13:20)
--- NOTE | 2018-06-25 01:10 | NUR ---
REPOSITIONED PATIENT. PATIENT TOLERATED WELL. DRESSINGS C/D/I. CONTINUE TO MONITOR.
--- NOTE | 2018-06-25 03:19 | NUR ---
REPOSITIONED PATIENT. PATIENT TOLERATED WELL. CONTINUE CARE.
[2018-06-25 05:02] VITALS: BP 154/102
--- NOTE | 2018-06-25 05:54 | NUR ---
PATIENT HAD BM. CLEANED PATIENT, PARTIAL LINEN CHANGED. REPOSITIONED PATIENT TO COMFORT. PATIENT TOLERATED WELL. CONTINUE CARE.
[2018-06-25] MEDS: CALCIUM ACETATE 667 MG CAP GT SCH ×3 (06:05→22:31)
[2018-06-25] MEDS: metroNIDAZOLE 500 MG TAB PO SCH ×3 (06:05→22:31)
[2018-06-25] MEDS: HEPARIN SODIUM (PORCINE) 5000 UNITS/ML 1ML VIAL SC SCH ×3 (06:06→22:47)
--- NOTE | 2018-06-25 06:30 | NUR ---
SCHEDULED MEDICATIONS GIVEN VIA PEG TUBE, WELL FREE WATER. PATIENT TOLERATED WELL. NO RESIDUAL NOTED AT THIS TIME. CONTINUE TO MONITOR.
[2018-06-25] MEDS: Nepro With Carb Steady 1 Liter Bottle GT SCH (06:32)
[2018-06-25] MEDS: IPRATROPIUM BROM 0.5 MG/2.5ML INH SOL NEB SCH ×3 (07:05→19:09)
[2018-06-25] MEDS: ALBUTEROL SULF 2.5 MG/0.5ML(0.5%) NEB SOLN NEB SCH ×3 (07:05→19:09)
--- NOTE | 2018-06-25 07:30 | NUR ---
OPENING NOTE Assumed care of patient from NOC RN. Patient resting in bed with eyes closed, even rise and fall of chest noted. No S/S of distress/SOB or pain. PEG tube intact, currently infusing Nephro Carb steady @ 30 ml/hr. Conn catheter intact, patent, and hung below bed. Gilmore boots on both feet. Bed in lowest, locked position with side rails up x2. Fall precautions in place and call light within reach. Will continue to monitor for changes Q1hr and PRN.
[2018-06-25 09:00] VITALS: BP 138/91
[2018-06-25] MEDS: BUMETANIDE (0.25 MG/ML) INJ 10ML IV SCH (10:47)
[2018-06-25] MEDS: PANTOPRAZOLE 40 MG/10 ML VIAL IV SCH (10:47)
[2018-06-25] MEDS: LINEZOLID 600MG/300ML 300 ML IV SCH ×2 (10:48→22:31)
[2018-06-25] MEDS ORDERED: SODIUM CHLORIDE 0.9% 500 ML IV ONE (11:15)
[2018-06-25 13:00] VITALS: BP 131/92
[2018-06-25] MEDS: MORPHINE SULF INJ 2 MG/ML SYRINGE 1ML IV PRN ×3 (15:52→16:25)
--- NOTE | 2018-06-25 16:10 | NUR ---
DRESSING CHANGE Removed soiled sacral dressing. Cleaned area with wound cleanser, patted dry with sterile gauze. Applied thera honey to wound bed, wet sterile gauze with saline solution and placed inside wound, covered wound with sacral optifoam dressing. Patient tolerated well. Will continue to monitor.
[2018-06-25 17:00] VITALS: BP 142/95
--- NOTE | 2018-06-25 19:25 | NUR ---
CLOSING NOTE Endorsed care of patient to NOC Juli MAO. Patient's family at bedside.
--- NOTE | 2018-06-25 19:30 | NUR ---
RECEIVED PATIENT FROM DAY SHIFT RN. PATIENT RESTING IN BED. NO S/S OF DISTRESS AND PAIN NOTED. DRESSING ON WOUND AREAS C/D/I. REPOSITIONED PATIENT. PATENT TOLERATED WELL. THOMPSON BOOTS IN PLACE. SCD ON. HILL CATH IN PLACE DRAINING GRAVITY. REORIENTED PATIENT, PATIENT NO VERBAL RESPONSE. INSTRUCTED ON POC BUT NO RESPONSE. BED IN LOWEST POSITION WITH SIDE RAILS UP X 2. CALL CHEEMA WITHIN REACH. ALARM ON. CONTINUE TO MONITOR FOR CHANGES Q1H AND PRN.
--- NOTE | 2018-06-25 21:22 | NUR ---
REPOSITIONED PATIENT . PATIENT TOLERATED WELL. CONTINUE TO MONITOR.
[2018-06-25 22:00] VITALS: BP 149/95
--- NOTE | 2018-06-25 22:25 | NUR ---
IV insertion IV access obtained, via clean sterile technique by inserting [22] gauge catheter at [RFA] after [2] attempt(s). IV secured properly. No trauma to site. Patient tolerated well. NOTE: []
--- NOTE | 2018-06-25 23:10 | NUR ---
REPOSITIONED PATIENT . PATIENT TOLERATED WELL. CONTINUE TO MONITOR.
--- NOTE | 2018-06-25 23:20 | NUR ---
REPOSITIONED PATIENT. PATIENT TOLERATED WELL. DRESSINGS C/D/I. CONTINUE TO MONITOR.
[2018-06-25 23:33] VITALS: BP 149/95
[2018-06-26] MEDS: MEROPENEM 500MG IVPB 50 ML IV SCH ×2 (00:09→12:27)
--- NOTE | 2018-06-26 00:31 | NUR ---
RESIDUAL CHECKED, 20 ML. FREE WATER GIVEN. PATIENT TOLERATED WELL. CONTINUE TO MONITOR.
--- NOTE | 2018-06-26 01:11 | NUR ---
REPOSITIONED PATIENT . PATIENT TOLERATED WELL. CONTINUE TO MONITOR.
--- NOTE | 2018-06-26 03:32 | NUR ---
REPOSITIONED PATIENT . PATIENT TOLERATED WELL. CONTINUE TO MONITOR.
[2018-06-26 05:00] VITALS: BP 140/97
--- NOTE | 2018-06-26 05:31 | NUR ---
PATIENT HAD BM. CLEANED PATIENT, PARTIAL LINEN CHANGED. REPOSITIONED PATIENT TO COMFORT. PATIENT TOLERATED WELL. CONTINUE CARE.
[2018-06-26] MEDS: HEPARIN SODIUM (PORCINE) 5000 UNITS/ML 1ML VIAL SC SCH ×2 (06:34→15:47)
[2018-06-26] MEDS: metroNIDAZOLE 500 MG TAB PO SCH ×2 (06:34→14:35)
[2018-06-26] MEDS: CALCIUM ACETATE 667 MG CAP GT SCH ×2 (06:34→14:35)
--- NOTE | 2018-06-26 06:35 | NUR ---
SCHEDULED MEDICATIONS GIVEN VIA PEG TUBE, WELL FREE WATER. PATIENT TOLERATED WELL. NO RESIDUAL NOTED AT THIS TIME. CONTINUE TO MONITOR.
[2018-06-26] MEDS: ALBUTEROL SULF 2.5 MG/0.5ML(0.5%) NEB SOLN NEB SCH ×2 (06:44→12:09)
[2018-06-26] MEDS: IPRATROPIUM BROM 0.5 MG/2.5ML INH SOL NEB SCH ×2 (06:45→12:09)
--- NOTE | 2018-06-26 07:25 | NUR ---
OPENING NOTE Assumed care of patient from NOC RN. Patient resting in bed with eyes closed, even rise and fall of chest noted. No S/S of distress/SOB or pain. PEG tube intact, currently infusing Nephro Carb steady @ 30 ml/hr. Conn catheter intact, patent, and hung below bed. Bilateral francine boots in place. Patient currently laying on right side on specialty bed. Bed in lowest, locked position with side rails up x2. Fall precautions in place and call light placed under left hand. Will continue to monitor for changes Q1hr and PRN.
[2018-06-26 09:00] VITALS: BP 117/91
[2018-06-26] MEDS: PANTOPRAZOLE 40 MG/10 ML VIAL IV SCH (10:23)
[2018-06-26] MEDS: LINEZOLID 600MG/300ML 300 ML IV SCH (10:23)
[2018-06-26 11:08] LABS: BUN/Creatinine Ratio 9.4; Potassium 3.7 mmol/L (3.5-5.1)
--- NOTE | 2018-06-26 11:35 | NUR ---
Nutrition Follow-up Notes Wt.: 62.0 kg Pt's asleep in isolation room, no immediate family member at bedside when rounded this morning. Pt's no signs of distress noted earlier, currently NPO with EN support of Nephro Carb steady @ 30 ml/hr via PEG tube providing 1296 kcal and 58 gm proteins, tolerates feeding well, no residuals noted, per nursing. Pt's with fair EN support d/t mod initiation rate delivery of concentrated formula aeb current EN infusion meets 68% to 82% caloric needs, however meets 84% to 106% protein needs. RN informed of diet rec per MD approval Est. Needs BW [id number] kcal (25-30 kcal/kgBW), 50- 63 gms pro (0.8-1.0 gms/kgBW reassessed r/t elev. renal labs, wounds). Will continue to monitor pertinent labs and reassess nutrient needs prn Labs: BUN 41 H, CREAT 5.42 H, ALB 1.6 L. Skin: Juan scale 11 high risk, pressure ulcer to let upper sacrum per sales marketing. Pls refer to biochemical development engineer's notes (06/21/18) for details GI: Pt had 1 BM this morning per sales marketing. PES: Altered nutrition related lab values r/t current/chronic medical condition aeb hypocalcemia Increased nutrient needs r/t current chronic medical condition aeb pt`s NPO, PEG tube with multiple pressure wounds Will continue to monitor NPO status, EN tolerance, skin status, pertinent labs and weight trend. F/u in 2 to 3 days. Rec.: 1.) If pt's renal labs continue trending up, not on dialysis, consider change EN formula to Osmolite 1.2 Charles @ 50 ml/hr goal rate as tolerated instead of Nephro Carb steady, per MD's approval. 2.) Consider daily Nephrovite and Asc acid 500 mgs BID. 3.) If Albumin level continues trending down with improved renal labs/on HD, consider Prostat 1 pkt BID. 4.) Refer pt's family to CDE/RD for further nutrition education and weight monitoring upon discharged. 5.) Continue current plan of care.
[2018-06-26 13:00] VITALS: BP 137/83
--- NOTE | 2018-06-26 13:23 | NUR ---
VISITOR AT BEDSIDE Patient has visitor, Collete, at bedside. Has questions regarding patient's discharge, would like to speak with SS. EMILY for [facility].
[2018-06-26] MEDS: MORPHINE SULF INJ 2 MG/ML SYRINGE 1ML IV PRN (15:47)
--- NOTE | 2018-06-26 16:15 | NUR ---
Completion of Social Service consult for placement with hospice. Due to confidentiality needed to maintain the safety and location of pt , the name of board and care is not documented. With mother, Christens , agreeance pt to be transferred to licensed board and care facility today with [facility] to follow upon discharge. Pt to be transported by [facility] via gurney between 4 and 5 pm. All [facility] paperwork completed and provided to facility.
--- NOTE | 2018-06-26 16:45 | NUR ---
WOUND PHOTO/DRESSING CHANGE Removed soiled sacral dressing. Cleaned area with wound cleanser and patted dry with sterile gauze. Applied thera honey gauze, covered with dampened sterile gauze and covered wound with sacral optifoam dressing. Patient tolerated well. Discharge wound photos also taken at this time.
[2018-06-26 17:00] VITALS: BP 131/87
--- NOTE | 2018-06-26 17:10 | NUR ---
DISCHARGE Discharge instructions given as ordered. Medication reconciliation form completed and copy given to transporting company. IV removed with catheter intact and pressure dressing applied. Patient receiving home health care through hospice company, caban catheter left intact. Telemetry unit returned to [facility]. Patient taken to vehicle via gurney with all personal belongings, accompanied by transporting staff. No distress noted at time of departure.
[2018-06-27] MEDS ORDERED: Osmolite 1.2 Cal One Liter GT SCH (10:00)
== END 2018-06-26 17:10 | disposition hospice, home (50) | DRG 853 ==
LOC: EAST 16:29 → TELE-EAST 16:42
PROVIDERS: ADMIT Nurse Practitioner Acute Care; ATTEND Internal Medicine Pulmonary Disease
PROC: 0D20XUZ Change Feeding Device in Upper Intestinal Tract, External Approach (ICD-10-PCS; 2018-06-15)
PROC: 0DJ08ZZ Inspection of Upper Intestinal Tract, Via Natural or Artificial Opening Endoscopic (ICD-10-PCS; principal; 2018-06-15 12:25)
PROC: 0JB70ZZ Excision of Back Subcutaneous Tissue and Fascia, Open Approach (ICD-10-PCS; 2018-06-20)
DX: A41.9 Sepsis, unspecified organism (principal); L89.154 Pressure ulcer of sacral region, stage 4; J18.9 Pneumonia, unspecified organism; G92 Toxic encephalopathy; N39.0 Urinary tract infection, site not specified; E44.0 Moderate protein-calorie malnutrition; E87.1 Hypo-osmolality and hyponatremia; K94.23 Gastrostomy malfunction; N17.9 Acute kidney failure, unspecified; J98.11 Atelectasis; T36.8X5A Adverse effect of other systemic antibiotics, initial encounter; N14.1 Nephropathy induced by other drugs, medicaments and biological substances; E83.39 Other disorders of phosphorus metabolism; B95.2 Enterococcus as the cause of diseases classified elsewhere; G40.909 Epilepsy, unspecified, not intractable, without status epilepticus; I11.9 Hypertensive heart disease without heart failure; J45.909 Unspecified asthma, uncomplicated; Y95 Nosocomial condition; Z51.5 Encounter for palliative care; Z82.49 Family history of ischemic heart disease and other diseases of the circulatory system; Z83.3 Family history of diabetes mellitus; Z98.2 Presence of cerebrospinal fluid drainage device; I69.320 Aphasia following cerebral infarction; Z68.22 Body mass index [BMI] 22.0-22.9, adult; Z74.01 Bed confinement status; Z79.899 Other long term (current) drug therapy; Z88.8 Allergy status to other drugs, medicaments and biological substances
CPT/HCPCS: 36415; 71045; 80048; 80053; 80202; 81001; 82306; 82570; 82962; 83970; 84100; 84300; 85025; 85610; 85730; 86850; 86900; 86901; 87070; 87075; 87077; 87081; 87186; 87205; 87804; 94640; A6257; C9113; G0378; J0330; J0690; J0696; J2185; J2250; J2405; J2543; J7042; J7060